=== PATIENT | male | born 1960 | race Caucasian/White ===

== ENCOUNTER 2020-08-25 07:47 | Outpatient (CLI) | payer BC, SELFPAY ==
[2020-08-25 08:38] LABS: Basophils Percent Auto 0.5 % (0.2-1.2); Eosinophils Absolute Auto 0.1 K/mm3 (0-0.3); Eosinophils Percent Auto 1.9 % (0-4.4); Hematocrit 43.6 % (42.0-52.0); Hemoglobin 15.2 g/dL (14.0-18.0); Immature Granulocyte Absolute 0.01 K/mm3 (0.00-0.031); Immature Granulocyte Percent A 0.2 % (0-0.5); Lymphocytes Absolute Auto 2.36 K/mm3 (0.9-3.2); Lymphocytes Percent Auto 40.7 % (18.3-44.2); Mean Corpuscular HGB Conc 34.9 g/dl (32-36); Mean Corpuscular Hemoglobin 30.6 pg (26-34); Mean Corpuscular Volume 87.9 fl (80-100); Mean Platelet Volume 8.7 fl (7.4-10.4); Monocytes Absolute Auto 0.5 K/mm3 (0.1-0.6); Monocytes Percent Auto 7.9 % (2.6-8.5); Neutrophils Absolute Auto 2.8 K/mm3 (1.3-6.7); Neutrophils Percent Auto 48.8 % (45.5-73.1); Platelet Count Result 192 k/mm3 (150-375); Red Blood Count 4.96 M/mm3 (4.6-6.20); Red Cell Distribution Width 12.8 % (11.5-14.5); White Blood Count 5.8 K/mm3 (4.5-10.0)
[2020-08-25 08:54] LABS: Alanine Aminotransferase 40 U/L (4-50); Albumin Level 4.4 g/dL (3.5-5.1); Alkaline Phosphatase 72 U/L (38-126); Anion Gap 7 mmol/L (8-16); Aspartate Amino Transferase 38 U/L (17-59); Bilirubin,Total 1.3 mg/dL (0.2-1.3); Blood Urea Nitrogen 16 mg/dL (9-20); Calcium 9.6 mg/dL (8.4-10.2); Carbon Dioxide 31 mmol/L (22-30); Chloride 101 mmol/L (98-107); Cholesterol 223 mg/dL (0-200); Estimated Glomerular Filt Rate > 60; Glucose 108 mg/dL (75-110); HDL Direct 40 mg/dL; Potassium 4.3 mmol/L (3.4-5.0); Sodium 139 mmol/L (137-145); Triglycerides 412 mg/dL (<150)
[2020-08-25 09:05] LABS: LDL Cholesterol Direct 104 mg/dL
[2020-08-25 09:22] LABS: Prostate Specific Antigen 0.9 ng/mL (< OR = 4.0)
== END 2020-08-25 07:48 | disposition home or self-care (01) ==
PROVIDERS: PCP Internal Medicine; Visit Provider Clinical Nurse Specialist
DX: E78.1 Pure hyperglyceridemia (principal); Z12.5 Encounter for screening for malignant neoplasm of prostate; R73.9 Hyperglycemia, unspecified
CPT/HCPCS: 36415; 80053; 80061; 84153; 85025; G0103

== ENCOUNTER 2021-08-25 07:40 | Outpatient (CLI) | payer BC, SELFPAY ==
[2021-08-25 07:57] LABS: Basophils Percent Auto 0.5 % (0.2-1.2); Eosinophils Absolute Auto 0.1 K/mm3 (0-0.3); Eosinophils Percent Auto 1.8 % (0-4.4); Hematocrit 43.2 % (42.0-52.0); Hemoglobin 15.1 g/dL (14.0-18.0); Immature Granulocyte Absolute 0.04 K/mm3 (0.00-0.031); Immature Granulocyte Percent A 0.7 % (0-0.5); Mean Corpuscular Hemoglobin 30.9 pg (26-34); Mean Corpuscular Volume 88.3 fl (80-100); Mean Platelet Volume 8.5 fl (7.4-10.4); Monocytes Absolute Auto 0.5 K/mm3 (0.1-0.6); Monocytes Percent Auto 8.6 % (2.6-8.5); Neutrophils Absolute Auto 2.7 K/mm3 (1.3-6.7); Neutrophils Percent Auto 46.4 % (45.5-73.1); Platelet Count Result 191 k/mm3 (150-375); Red Blood Count 4.89 M/mm3 (4.6-6.20); Red Cell Distribution Width 12.8 % (11.5-14.5); White Blood Count 5.7 K/mm3 (4.5-10.0)
[2021-08-25 08:29] LABS: Alanine Aminotransferase 32 U/L (4-50); Albumin Level 4.7 g/dL (3.5-5.1); Alkaline Phosphatase 71 U/L (38-126); Anion Gap 9 mmol/L (8-16); Aspartate Amino Transferase 31 U/L (17-59); Bilirubin,Total 0.9 mg/dL (0.2-1.3); Blood Urea Nitrogen 17 mg/dL (9-20); Calcium 9.1 mg/dL (8.4-10.2); Carbon Dioxide 26 mmol/L (22-30); Chloride 102 mmol/L (98-107); Cholesterol 229 mg/dL (0-200); Estimated Glomerular Filt Rate > 60; Glucose 110 mg/dL (65-110); HDL Direct 44 mg/dL; Potassium 3.9 mmol/L (3.4-5.0); Sodium 137 mmol/L (137-145); Triglycerides 293 mg/dL (<150)
[2021-08-25 08:40] LABS: LDL Cholesterol Direct 118 mg/dL
[2021-08-25 08:51] LABS: Prostate Specific Antigen 0.9 ng/mL (< OR = 4.0)
== END 2021-08-25 07:41 | disposition home or self-care (01) ==
PROVIDERS: PCP Internal Medicine; Visit Provider Nurse Practitioner
DX: E78.2 Mixed hyperlipidemia (principal); R73.9 Hyperglycemia, unspecified; Z12.5 Encounter for screening for malignant neoplasm of prostate
CPT/HCPCS: 36415; 80053; 80061; 84153; 85025; G0103

== ENCOUNTER 2021-09-06 08:32 | Outpatient (CLI) | payer BC, SELFPAY ==
--- NOTE | ~2021-09-06 | XR_ITS ---
EXAMINATION: XR hip RT min 2V DATE: 09/06/2021 08:49 INDICATION: Right hip pain. TECHNIQUE: 2 views of right hip were obtained. COMPARISON: None. FINDINGS: Bone alignment is normal. No fracture. There is moderate right hip osteoarthritis. IMPRESSION: 1. Moderate right hip osteoarthritis. Reviewed, dictated and finalized at location A. [employer]
== END 2021-09-06 08:33 | disposition home or self-care (01) ==
LOC: ANHIMG 08:35
PROVIDERS: PCP Internal Medicine; Visit Provider Nurse Practitioner
DX: M16.11 Unilateral primary osteoarthritis, right hip (principal)
CPT/HCPCS: 73502

== ENCOUNTER 2021-12-06 09:46 | Outpatient (CLI) | payer BC, SELFPAY ==
[2021-12-06 11:16] LABS: Hematocrit 44.5 % (42.0-52.0); Hemoglobin 15.4 g/dL (14.0-18.0)
[2021-12-06 11:25] LABS: Albumin Level 4.7 g/dL (3.5-5.1); Estimated Glomerular Filt Rate > 60; Glucose 99 mg/dL (65-110)
[2021-12-06 11:30] LABS: Hemoglobin A1C 5.4 % (<5.7)
== END 2021-12-06 09:47 | disposition home or self-care (01) ==
PROVIDERS: PCP Internal Medicine; Visit Provider Orthopaedic Surgery
DX: Z01.812 Encounter for preprocedural laboratory examination (principal); M16.11 Unilateral primary osteoarthritis, right hip; R73.9 Hyperglycemia, unspecified
CPT/HCPCS: 82040; 82565; 82947; 83036; 85014; 85018

== ENCOUNTER 2021-12-13 10:32 | Outpatient (CLI) | payer BC, SELFPAY ==
--- NOTE | 2021-12-13 | ECG_ITS ---
Measurements Intervals [place] Rate: 53 P: -9 MS: 140 QRS: -23 QRSD: 106 T: 21 QT: 432 QTc: 408 Interpretive Statements SINUS BRADYCARDIA INDETERMINATE AXIS BORDERLINE ECG Electronically Signed On 12-13-2021 11:27:23 CDT by Jose L Vera M.D.
== END 2021-12-13 10:33 | disposition home or self-care (01) ==
LOC: ANHCARD 10:38
PROVIDERS: PCP Internal Medicine; Visit Provider Orthopaedic Surgery
DX: M16.11 Unilateral primary osteoarthritis, right hip (principal); R00.1 Bradycardia, unspecified
CPT/HCPCS: 93005

== ENCOUNTER 2022-01-11 07:49 | Outpatient (CLI) | payer BC, SELFPAY ==
[2022-01-11 09:23] LABS: Basophils Percent Auto 0.7 % (0.2-1.2); Eosinophils Absolute Auto 0.1 K/mm3 (0-0.3); Eosinophils Percent Auto 1.4 % (0-4.4); Hematocrit 45.7 % (42.0-52.0); Hemoglobin 15.4 g/dL (14.0-18.0); Immature Granulocyte Absolute 0.02 K/mm3 (0.00-0.031); Immature Granulocyte Percent A 0.3 % (0-0.5); Lymphocytes Absolute Auto 2.02 K/mm3 (0.9-3.2); Mean Corpuscular HGB Conc 33.7 g/dl (32-36); Mean Corpuscular Hemoglobin 30.9 pg (26-34); Mean Corpuscular Volume 91.6 fl (80-100); Mean Platelet Volume 8.7 fl (7.4-10.4); Monocytes Absolute Auto 0.4 K/mm3 (0.1-0.6); Monocytes Percent Auto 7.3 % (2.6-8.5); Neutrophils Absolute Auto 3.2 K/mm3 (1.3-6.7); Neutrophils Percent Auto 55.3 % (45.5-73.1); Platelet Count Result 216 k/mm3 (150-375); Red Blood Count 4.99 M/mm3 (4.6-6.20); Red Cell Distribution Width 13.2 % (11.5-14.5); White Blood Count 5.8 K/mm3 (4.5-10.0)
[2022-01-11 09:30] LABS: Albumin Level 4.8 g/dL (3.5-5.1); Estimated Glomerular Filt Rate > 60; Glucose 116 mg/dL (65-110)
[2022-01-11 09:32] LABS: Urine Cotinine NEGATIVE
[2022-01-11 09:41] LABS: Appearance Urine Clear (Clear); Bilirubin Urine Negative (Negative); Color Urine Yellow (Yellow); Glucose Urine UA Negative (Negative); Ketones Urine Negative (Negative); Leukocyte Esterase Ur Negative LEU/UL (NEGATIVE); Nitrate Urine Negative (Negative); Protein Urine Negative (Negative); Specific Grav Ur 1.015 (1.001-1.035); Urobilinogen Urine 0.2 mg/dL (<2.0); pH Urine 6.5 (5.0-9.0)
[2022-01-11 09:53] LABS: Add Urine Microscopic? YES; Blood Urine Trace-Intact (Negative)
[2022-01-11 09:56] LABS: RBC Urine 0-2 /hpf (0-2)
== END 2022-01-11 07:50 | disposition home or self-care (01) ==
LOC: ANHSURGERY 07:53
PROVIDERS: PCP Internal Medicine; Visit Provider Orthopaedic Surgery
DX: M16.11 Unilateral primary osteoarthritis, right hip (principal); N50.811 Right testicular pain; Z01.818 Encounter for other preprocedural examination
CPT/HCPCS: 80307; 81001; 82040; 82565; 82947; 85025; 87081

== ENCOUNTER 2022-01-12 00:04 | Day surgery (SDC) | payer BC, SELFPAY ==
[2022-01-02 10:21] VITALS: BMI 33.8
--- NOTE | 2022-01-11 11:14 | P.PNAN_ITS ---
Anes - Initial Pre Proc Eval Procedure: Operation Date: 01/12/22 08:00 Proposed Procedures p Screening Colonoscopy - Eliseo Nicolas MD Date/Time: 01/11/22 11:14 Surgeon: Eliseo Nicolas MD Pre Op Diagnosis: family hx of colon ca Patient Data Age: 61 Gender: M Height: 1.78 m Weight: 107 kg Allergies Allergy/AdvReac Type Severity Reaction Status Date / Time No Known Allergies Allergy Verified 01/12/22 06:49 Home Medications Medication Instructions Recorded Confirmed Type aspirin 81 mg chewable tablet 81 mg PO QPM 08/25/19 01/12/22 History famotidine 20 mg tablet 20 mg PO QPM 08/25/19 01/12/22 History glucosamine-chondroitin 750 mg-600 2 tablet PO DAILY 08/25/19 01/12/22 History mg tablet lovastatin 40 mg tablet 40 mg PO QPM #90 tablet 09/01/21 01/12/22 Rx omega-3 fatty acids 1,000 mg 2,000 mg PO BID cap 09/01/21 01/12/22 History capsule cinnamon bark [Cinnamon] 1,000 mg PO BID 01/11/22 01/12/22 History ibuprofen 400 mg PO Q6H PRN 01/11/22 01/12/22 History multivitamin 1 tablet PO DAILY 01/11/22 01/12/22 History Patient hx anesthesia problems: none Family hx anesthesia problems: none Results Review: All pre-operative results and documents have been reviewed as part of the pre-operative evaluation. FORMERLY [facility], [facility] Past Medical History Medical History Allergies Chicken pox GERD (gastroesophageal reflux disease) Heartburn History of measles, mumps, or rubella History of stress test (~2014) Hyperglycemia Hyperglycemia Hypertriglyceridemia Obesity BLU (obstructive sleep apnea) Osteoarthritis Surgical History Surgical History H/O knee surgery (~05/03/09) Right Knee Torn Meniscus Family History Family History Father Patient's father is Other Arthritis Social History Social History Smoking packs per day: 0.5 Smoking cigarettes per day: 10.0 Years smoked: 25 Smoking pack-years: 12.50 Smoking status: Former smoker Tobacco type: cigarettes Smoking end date: 09/24/07 Additional smoking assessment comments: DENIES ANY FORM OF TOBACCO USE Alcohol intake: current Alcohol use details: 3 DRINKS PER MONTH Substance use: never Substance use type: does not use Living arrangements: with family Spiritual care concerns: No Anes - Eval Final PreProcedure Day of Procedure 01/11/22 11:14 Patient weight: obese Heart: regular rate and rhythm Lungs: clear to auscultation and normal air movement Airway: Mallampati scale class II Neurological: alert and oriented Last oral intake: >/= 8 hours ASA classification: III Emergent: no Anesthetic plan: proceed Anesthesia type and monitoring: general GIVS and standard monitoring Results Review: All pre-operative results and documents have been reviewed as part of the pre-operative evaluation. Informed Consent: The patient's anesthetic plan and its attendant risks and benefits were discussed with the patient/family/POA. Questions were solicited and answers provided to the satisfaction of the patient/family/POA.
--- NOTE | 2022-01-11 14:19 | PM.HPGS ---
History of Present Illness History of Present Illness Consent: Risks, benefits, and alternatives have been discussed and questions answered. Patient agrees to proceed with procedure. Chief complaint: family hx of colon ca Narrative: Akbar Bai is a 61 year old male was referred for colon cancer screening. He had a polyp removed about 5 years ago. Also he has a family history of colon cancer. Review of Systems Review of Systems: All systems reviewed & are unremarkable except as noted in HPI and below PMFSH Past Medical History Medical History Allergies Chicken pox GERD (gastroesophageal reflux disease) Heartburn History of measles, mumps, or rubella History of stress test (~2014) Hyperglycemia Hyperglycemia Hypertriglyceridemia Obesity BLU (obstructive sleep apnea) Osteoarthritis Surgical History Surgical History H/O knee surgery (~05/03/09) Right Knee Torn Meniscus Family History Family History Father Patient's father is Other Arthritis Social History Social History Smoking packs per day: 0.5 Smoking cigarettes per day: 10.0 Years smoked: 25 Smoking pack-years: 12.50 Smoking status: Former smoker Tobacco type: cigarettes Smoking end date: 09/24/07 Additional smoking assessment comments: DENIES ANY FORM OF TOBACCO USE Alcohol intake: current Alcohol use details: 3 DRINKS PER MONTH Substance use: never Substance use type: does not use Living arrangements: with family Spiritual care concerns: No Meds Home Medications and Allergies Home Medications Medication Instructions Recorded Confirmed Type aspirin 81 mg chewable tablet 81 mg PO QPM 08/25/19 01/12/22 History famotidine 20 mg tablet 20 mg PO QPM 08/25/19 01/12/22 History glucosamine-chondroitin 750 mg-600 2 tablet PO DAILY 08/25/19 01/12/22 History mg tablet lovastatin 40 mg tablet 40 mg PO QPM #90 tablet 09/01/21 01/12/22 Rx omega-3 fatty acids 1,000 mg 2,000 mg PO BID cap 09/01/21 01/12/22 History capsule cinnamon bark [Cinnamon] 1,000 mg PO BID 01/11/22 01/12/22 History ibuprofen 400 mg PO Q6H PRN 01/11/22 01/12/22 History multivitamin [Multi-Vitamin] 1 tablet PO DAILY 01/11/22 01/12/22 History Allergies Allergy/AdvReac Type Severity Reaction Status Date / Time No Known Allergies Allergy Verified 01/12/22 06:49 Exam Const: General: alert Orientation/consciousness: patient oriented x3 Resp: Auscultation: clear to auscultation bilaterally Cardio: Rhythm: regular rhythm GI: GI Palp: Yes Soft to palpation and No Tenderness to palpation present (GI) Neuro: General: patient oriented x3 Assessment and Plan Assessment and plan (1) Colon cancer screening: Code(s): Z12.11 - Encounter for screening for malignant neoplasm of colon Status: Acute Assessment and Plan: Colonoscopy with possible biopsy or polypectomy or cautery or injection of substances.
[2022-01-12 06:50] VITALS: BP 162/87; PULSE 77; RESP 16; TEMP 36.8; O2SAT 100; BMI 33.3
[2022-01-12] MEDS: LACTATED RINGERS 1,000 ML 150 ML IV CONT (07:04)
[2022-01-12 07:58] VITALS: BP 112/74; PULSE 77; RESP 23; O2SAT 94
[2022-01-12 08:08] VITALS: BP 115/78; PULSE 72; RESP 30; O2SAT 96
[2022-01-12 08:18] VITALS: BP 125/75; PULSE 67; RESP 20; O2SAT 96
== END 2022-01-12 08:31 | disposition home or self-care (01) ==
PROVIDERS: PCP Internal Medicine; Visit Provider Internal Medicine Gastroenterology
PROC: 0DJD8ZZ Inspection of Lower Intestinal Tract, Via Natural or Artificial Opening Endoscopic (ICD-10-PCS; CPT 45378; principal; 2022-01-12 08:00)
DX: Z12.11 Encounter for screening for malignant neoplasm of colon (principal); K57.30 Diverticulosis of large intestine without perforation or abscess without bleeding; Z86.010 Personal history of colon polyps; Z80.0 Family history of malignant neoplasm of digestive organs; K21.9 Gastro-esophageal reflux disease without esophagitis; G47.33 Obstructive sleep apnea (adult) (pediatric); E78.1 Pure hyperglyceridemia; Z87.891 Personal history of nicotine dependence; E66.9 Obesity, unspecified; Z68.33 Body mass index [BMI] 33.0-33.9, adult; Z79.82 Long term (current) use of aspirin
CPT/HCPCS: 45378; J2704; J7120

== ENCOUNTER 2022-02-07 00:09 | Day surgery (SDC) | payer BC, SELFPAY ==
[2022-01-11 07:59] VITALS: BMI 34.4
--- NOTE | 2022-01-11 08:14 | PC.NURSE ---
Addendum entered by Oksana Weaver RN 01/11/22 08:25: IBUPROFEN 7 DAYS PRE OP LAST DOSE 01/30/22 Original Note: Report to the Outpatient Waiting Room, entrance under the green pavilion located off [facility], at time _0900 on date __02/07/22 . OR Time: __1100 . - You and your visitor will be asked a series of questions to screen for COVID 19 for your protection. - A mask is required within the hospital. Preoperative COVID Testing Requirements: No COVID Test needed if: (proof is required; if not received patient will have Rapid Test prior to entry) - Patient has received COVID Vaccine at least 14 days prior to procedure date or - Patient has positive COVID test result within last 90 days of surgery date. COVID Test needed if above criteria is not met If not COVID vaccinated a COVID test must be conducted within 72 hours of surgery and patient is asked to isolate self from time of testing until procedure. You will go to the [facility] for your COVID testing. The [facility] site is located at the corner of [address] [facility]. You will only be called if COVID results are positive and your surgeon may reschedule your elective surgery date. Patients may have clear liquids (water, carbonated beverages, clear teas, apple juice) until 3 hours prior to surgery with a maximum of 20 ounces. - No food from midnight until time of surgery - Infants may have breast milk until 4 hours before surgery, infant formula 6 hours prior to surgery. - Children will be allowed to drink immediately following surgery. If applicable, please bring a bottle or sippy cup to assist with drinking. Juice, water, soda, and popsicles are readily available. For infants on formula, please bring formula the day of surgery. Pacifiers are allowed. Take the following medications with a SIP of water the morning of surgery: ___NONE Medications to discontinue per physician ____ASPIRIN 7 DAYS PRE OP__AND ALL VITAMINS AND SUPPLEMENTS 3 DAYS PRE OP Date to take last dose_ASPIRIN 01/30/22__ALL VITAMINS/SUPPLEMENTS 02/03/22 Please no make-up, nail romanian, hairspray, perfume, deodorant, or body powder the day of surgery. No jewelry (including any body piercings) or valuables the day of surgery, leave them at home. Please take a shower or bath the night before, or the morning of, surgery with an antibacterial soap. Wear comfortable, loose fitting clothing. Children are encouraged to wear pajamas. - Jewelry must be removed prior to entering the operating room. Rings and piercings that are not removed may be cut off. - The hospital will not accept responsibility for valuables. - Please leave all valuables, including medications, at home the day of surgery. If you are going home after surgery, a licensed pole truck driver must drive you home. - NO public transportation without another adult. - We recommend that an adult stay with you for 24 hours following discharge. - We also recommend that you do not drive, make important decision, drink alcoholic beverages, or take any drugs that were not prescribed by your health care provider for at least 24 hours after your discharge time. One visitor will be allowed to accompany the patient into the hospital. Patients visitor will be instructed to remain with patient at all times or leave the building. We will allow the visitor to come back to the postoperative area when patient is ready. Follow any additional instructions given to you from your surgeon. VERBAL AND WRITTEN instructions given to PATIENT AND SPOUSE and asked if any additional questions and then verbalized understanding. Patient advised to call surgeon office or pre surgery nurse liaison [phone] if any additional questions.
[2022-01-11 08:45] VITALS: BP 148/78; PULSE 55; RESP 18; TEMP 36.9; O2SAT 100
--- NOTE | 2022-02-06 11:59 | WPDANESEPPF ---
Anes - Initial Pre Proc Eval Procedure: Operation Date: 02/07/22 10:30 Proposed Procedures p Right Total Hip Arthroplasty - Farhan Chavira MD Date/Time: 02/06/22 11:59 Surgeon: Farhan Chavira MD Pre Op Diagnosis: primary OA right hip Patient Data Age: 61 Gender: M Height: 1.78 m Weight: 108.7 kg Last Vital Signs Temp 36.9 C 01/11/22 08:45 Pulse 55 L 01/11/22 08:45 Resp 18 01/11/22 08:45 BP 148/78 H 01/11/22 08:45 Pulse Ox 100 01/11/22 08:45 Allergies Allergy/AdvReac Type Severity Reaction Status Date / Time No Known Allergies Allergy Verified 02/07/22 08:44 Home Medications Medication Instructions Recorded Confirmed Type aspirin 81 mg chewable tablet 81 mg PO QPM 08/25/19 02/07/22 History famotidine 20 mg tablet 20 mg PO QPM 08/25/19 02/07/22 History glucosamine-chondroitin 750 mg-600 2 tablet PO DAILY 08/25/19 02/07/22 History mg tablet lovastatin 40 mg tablet 40 mg PO QPM #90 tablet 09/01/21 02/07/22 Rx omega-3 fatty acids 1,000 mg 2,000 mg PO BID cap 09/01/21 02/07/22 History capsule cinnamon bark [Cinnamon] 1,000 mg PO BID 01/11/22 02/07/22 History ibuprofen 400 mg PO Q6H PRN 01/11/22 02/07/22 History multivitamin 1 tablet PO DAILY 01/11/22 02/07/22 History aspirin 81 mg PO BID 14 Days #28 tablet 02/08/22 Rx meloxicam 15 mg PO DAILY #30 tablet 02/08/22 Rx oxycodone-acetaminophen 1 - 2 tablet PO Q4-6H PRN #30 02/08/22 Rx tablet MDD 6 Patient hx anesthesia problems: none Family hx anesthesia problems: none Results Review: All pre-operative results and documents have been reviewed as part of the pre-operative evaluation. [facility] Past Medical History Medical History Allergies Chicken pox GERD (gastroesophageal reflux disease) Heartburn History of measles, mumps, or rubella History of stress test (~2014) Hyperglycemia Hyperglycemia Hypertriglyceridemia Obesity BLU (obstructive sleep apnea) Osteoarthritis Surgical History Surgical History H/O knee surgery (~05/03/09) Right Knee Torn Meniscus Family History Family History Father Patient's father is Other Arthritis Social History Social History Smoking packs per day: 0.5 Smoking cigarettes per day: 10.0 Years smoked: 25 Smoking pack-years: 12.50 Smoking status: Former smoker Additional smoking assessment comments: DENIES ANY FORM OF TOBACCO USE Alcohol intake: current Alcohol use details: Pt drinks occasionally. Substance use: never Substance use type: does not use Gender identity (if verbalized by the patient): Male Sexual Orientation (if Verbalized by the Patient): Straight or Heterosexual Spiritual care concerns: No Anes - Eval Final PreProcedure Day of Procedure 02/06/22 11:59 Patient weight: obese Heart: regular rate and rhythm Lungs: clear to auscultation and normal air movement Airway: Mallampati scale class II Neurological: alert and oriented Last oral intake: >/= 8 hours ASA classification: III Emergent: no Anesthetic plan: proceed Anesthesia type and monitoring: general ETT Results Review: All pre-operative results and documents have been reviewed as part of the pre-operative evaluation. Informed Consent: The patient's anesthetic plan and its attendant risks and benefits were discussed with the patient/family/POA. Questions were solicited and answers provided to the satisfaction of the patient/family/POA.
[2022-02-07] VITALS (15 sets, daily range): BP systolic 102–152; BP diastolic 42–72; PULSE 55–80; RESP 12–20; TEMP 35.8–36.8; O2SAT 94–100; BMI 33.1
--- NOTE | ~2022-02-07 | XR_ITS ---
EXAMINATION: XR hip RT min 2V DATE: 02/07/2022 12:49 INDICATION: Postop images following right total hip arthroplasty. TECHNIQUE: Anteroposterior and cross-table lateral views of the right hip were obtained. COMPARISON: 01/25/2022 FINDINGS: Noncemented right total hip arthroplasty in near-anatomic alignment. No fracture. Expected small amou nt of postoperative soft tissue gas overlying the greater trochanter. IMPRESSION: 1. Expected appearance post right total hip arthroplasty. Reviewed, dictated and finalized at location A.
--- NOTE | 2022-02-07 07:16 | WPDHPUPDATE1 ---
History and Physical Update Update Date/Time: 02/07/22 07:16 History and Physical has been reviewed, including an updated exam of the patient. There are NO changes in the patient's condition. Risks, benefits, and alternatives have been discussed and questions answered. Patient agrees to proceed with procedure. Proceed with right total hip arthroplasty
[2022-02-07] MEDS: ACETAMINOPHEN 500 MG TABLET 1000 MG PO (08:50)
[2022-02-07] MEDS: LACTATED RINGERS 1,000 ML 30 ML IV CONT ×2 (09:10→12:34)
[2022-02-07] MEDS: TRANEXAMIC ACID 1,000MG/ISO100 1,000 MG/100 ML BAG 200 MG IVPB (10:00)
--- NOTE | 2022-02-07 10:20 | WPDANESEPPF ---
Anes - Initial Pre Proc Eval Procedure: Operation Date: 02/07/22 10:30 Proposed Procedures p Right Total Hip Arthroplasty - Farhan Chavira MD Date/Time: 02/07/22 10:20 Surgeon: Farhan Chavira MD Pre Op Diagnosis: primary OA right hip Patient Data Age: 61 Gender: M Height: 1.78 m Weight: 104.8 kg Last Vital Signs Temp 96.4 F L 02/07/22 09:24 Pulse 57 L 02/07/22 09:24 Resp 16 02/07/22 09:24 BP 152/66 H 02/07/22 09:24 Pulse Ox 100 02/07/22 09:24 Allergies Allergy/AdvReac Type Severity Reaction Status Date / Time No Known Allergies Allergy Verified 02/07/22 08:44 Home Medications Medication Instructions Recorded Confirmed Type aspirin 81 mg chewable tablet 81 mg PO QPM 08/25/19 02/07/22 History famotidine 20 mg tablet 20 mg PO QPM 08/25/19 02/07/22 History glucosamine-chondroitin 750 mg-600 2 tablet PO DAILY 08/25/19 02/07/22 History mg tablet lovastatin 40 mg tablet 40 mg PO QPM #90 tablet 09/01/21 02/07/22 Rx omega-3 fatty acids 1,000 mg 2,000 mg PO BID cap 09/01/21 02/07/22 History capsule cinnamon bark [Cinnamon] 1,000 mg PO BID 01/11/22 02/07/22 History ibuprofen 400 mg PO Q6H PRN 01/11/22 02/07/22 History multivitamin 1 tablet PO DAILY 01/11/22 02/07/22 History Laboratory Tests 02/07/22 08:47 Blood Type O Positive Antibody Screen Negative Patient hx anesthesia problems: none Family hx anesthesia problems: none Results Review: All pre-operative results and documents have been reviewed as part of the pre-operative evaluation. REPLACED BY [facility] Past Medical History Medical History Allergies Chicken pox GERD (gastroesophageal reflux disease) Heartburn History of measles, mumps, or rubella History of stress test (~2014) Hyperglycemia Hyperglycemia Hypertriglyceridemia Obesity BLU (obstructive sleep apnea) Osteoarthritis Surgical History Surgical History H/O knee surgery (~05/03/09) Right Knee Torn Meniscus Family History Family History Father Patient's father is Other Arthritis Social History Social History Smoking packs per day: 0.5 Smoking cigarettes per day: 10.0 Years smoked: 25 Smoking pack-years: 12.50 Smoking status: Former smoker Tobacco type: cigarettes Smoking end date: 09/24/07 Additional smoking assessment comments: DENIES ANY FORM OF TOBACCO USE Alcohol intake: current Alcohol use details: Pt drinks occasionally. Substance use: never Substance use type: does not use Living arrangements: with family Spiritual care concerns: No Anes - Eval Final PreProcedure Day of Procedure 02/07/22 10:20 Patient weight: obese Heart: regular rate and rhythm Lungs: clear to auscultation Airway: Mallampati scale class III Neurological: alert and oriented Last oral intake: >/= 8 hours ASA classification: III Emergent: no Anesthetic plan: proceed Anesthesia type and monitoring: general ETT and standard monitoring Results Review: All pre-operative results and documents have been reviewed as part of the pre-operative evaluation. Informed Consent: The patient's anesthetic plan and its attendant risks and benefits were discussed with the patient/family/POA. Questions were solicited and answers provided to the satisfaction of the patient/family/POA.
[2022-02-07] MEDS: ceFAZolin 2 GM/D5W 50 ML 2 GM/50 ML BAG IVPB ×2 (10:33→18:14)
[2022-02-07] MEDS: fentaNYL CITRATE INJ (*CRX) 100 MCG/2 ML VIAL 25 MCG IV PUSH ×4 (12:59→13:33)
--- NOTE | 2022-02-07 14:25 | ADMGEN ---
This patient, Akbar Bai, was admitted to 2 Medical Room 253-01. Patient/family oriented to hospital policies and general routines including ID bracelet, bed and alarms, visiting hours, pain management, procedures, bathroom and other care routines, personal items, smoking policy, room service/diet, and visiting hours. Information on how to activate the Rapid Response Team has been discussed. Patient/Family are encouraged to report perceived risks to care and to ask questions if they do not understand what they are told or what they should do.
[2022-02-07] MEDS: SODIUM CHLORIDE 0.9% IV 1,000 ML 125 ML IV CONT (14:47)
--- NOTE | 2022-02-07 14:55 | W.PM.PROC2 ---
Procedure Note - Detailed Date of Procedure 02/07/22 Pre-op Diagnosis primary OA right hip Post-op Diagnosis Same Procedure Performed Right Total Hip Arthroplasty Surgeon Farhan Chavira MD Claim Professional Mirna Silva PA-C Anesthesia General Findings Good bone quality. No abnormal anatomy. Significant superior labral degeneration and some erosion in the superior anterior acetabulum. Description of Procedure The patient was given preoperative antibiotics. A general anesthetic was administered. The patient was carefully placed in the lateral decubitus position on the PEG board. The shoulders and hips were carefully positioned for component and leg length positioning reference. The hip was prepped and draped in the usual sterile fashion. A longitudinal incision was created over the posterior aspect of the greater trochanter. Careful dissection was brought down through the deep fascia with electrocautery. A minimally invasive optimized posterior approach to the hip was performed. The short external rotators and capsule were taken down in an L-shaped capsulotomy. The tissue was tagged for later repair using number 2 high strength suture. The femoral neck was measured and taken in situ. The femoral head was removed. The acetabulum was carefully exposed. The inferior capsule was released. The labrum was resected. The acetabulum was sequentially reamed to one over the intended cup size. The cup was impacted into position with excellent press-fit. Typical anatomic landmarks, including the bony contact points as well as the inferior transverse acetabular ligament were used to confirm cup positioning with preoperative templating. Attention was turned to the femur, which was carefully exposed. The hip was reamed and then broached sequentially. Excellent press-fit was obtained with the broach. The hip was trialed. Measurements were utilized, including the lesser trochanter as well as the center of the femoral head and the tip of the trochanter, and excellent assessment of the offset and leg lengths were confirmed. The real component was impacted into position. Trialing confirmed appropriate leg length and offset with soft tissue balancing as well apparent feel of the leg, both at the knee and the heel. Soft tissues were assessed using the the iliotibial band. Reduction of the posterior capsule and external rotators were also used as a secondary assessment. The hip was copiously irrigated with pulsatile lavage antibiotic solution periodically throughout the procedure. The real components were then assembled and reduced. The hip was stable throughout typical maneuvers, including extension, external rotation to 70 degrees, the position of sleep as well as flexion to 90 degrees with internal rotation past 45 degrees. The shake test confirmed stability without impingement. Osteophytes were removed as necessary. The short external rotators and capsule were repaired back to the posterior trochanter through drill holes. The deep fascia was repaired with running number 2 Quill suture, followed by 0 Stratafix suture and 2-0 Stratafix suture in the dermis. Steri-Strips were placed on the skin, followed by a sterile silver occlusive dressing. There were no complications. Meticulous hemostasis was maintained with the AquaMantys device. The patient was brought to the recovery room in stable condition. There were no complications. Implants The Accolade II hip stem, 132 degree size 7 , was utilized with excellent press-fit. The 56 mm Trident II acetabular component was impacted with excellent press-fit stability. 10 degree elevated liner. The +2.5 , 36 mm Biolox ceramic femoral head was utilized. Estimated Blood Loss -300.0 Drains No Packing No Pathology None sent Complications No immediate complications Condition Stable Disposition PACU [facility] Billing Surgery - Charge Forward: Surgery Billing
[2022-02-07] MEDS: SENNA/DOCUSATE SODIUM TABLET 2 TAB PO (17:05)
[2022-02-07] MEDS: MELOXICAM 7.5 MG TABLET PO (17:06)
[2022-02-07] MEDS: FAMOTIDINE 20 MG TABLET PO (17:06)
[2022-02-07] MEDS: LOVASTATIN 20 MG TABLET 40 MG PO (17:07)
[2022-02-07] MEDS: oxyCODONE HCL (*CRX) 5 MG TAB IR PO (23:40)
[2022-02-08] MEDS: ceFAZolin 2 GM/D5W 50 ML 2 GM/50 ML BAG IVPB ×2 (01:48→11:12)
[2022-02-08 03:42] VITALS: BP 110/52; PULSE 52; RESP 20; TEMP 36.1; O2SAT 98
[2022-02-08 03:47] VITALS: BP 110/52; PULSE 52; RESP 20; TEMP 36.1; O2SAT 98
--- NOTE | 2022-02-08 07:47 | WPDANESPN ---
Anes - Prog Note Post-Op Date/Time: 02/08/22 07:47 Cardiovascular status: normal Respiratory status: normal Airway patency: baseline Mental status: baseline Post-Op hydration status: normal Vital Signs: Last Vital Signs Temp 36.1 C L 02/08/22 03:47 Pulse 52 L 02/08/22 03:47 Resp 20 02/08/22 03:47 BP 110/52 L 02/08/22 03:47 Pulse Ox 98 02/08/22 03:47 Pain Score (VAS): 0 I/O: Intake & Output 02/07/22 02/07/22 02/08/22 15:59 23:59 07:59 Intake Total 1850 1930 440 Output Total 850 800 Balance 1850 1080 360 02/07/22 08:47 Blood Type O Positive Antibody Screen Negative Post-procedural complaints: none Patient Feedback: Patient satisfied with anesthetic care.
[2022-02-08] MEDS: MELOXICAM 7.5 MG TABLET PO (08:10)
[2022-02-08] MEDS: SENNA/DOCUSATE SODIUM TABLET 2 TAB PO (08:10)
[2022-02-08] MEDS: polyethylene glycoL 3350 17 GM POWD.PACK PO (08:10)
[2022-02-08 10:15] VITALS: BP 135/58; PULSE 60; RESP 16; TEMP 37.1; O2SAT 100
[2022-02-08] MEDS: ACETAMINOPHEN 500 MG TABLET 1000 MG PO (12:00)
[2022-02-08 14:30] VITALS: BP 131/52; PULSE 65; RESP 14; TEMP 36.9; O2SAT 100
--- NOTE | 2022-02-08 14:56 | PM.DS ---
DS: Admitting Diagnosis Discharge Date 02/08/22 Admitting Diagnosis OA Right hip DS: Discharge Diagnosis Discharge Diagnosis (1) Status post total hip replacement, right: Code(s): Z96.641 - Presence of right artificial hip joint Status: Acute Assessment and Plan: Postop day 1: Right total Hip arthroplasty. Patient tolerated procedure well. No complications. Pain manageable with pain medication. No numbness or tingling. We had a lengthy discussion regarding postoperative wound care, limitations, expectations, and exercises. Patient shows good understanding. He has had initial physical therapy and is tolerating it well. DVT prophylaxis: 81 mg baby aspirin b.i.d. for 14 days. Pain medication: Percocet. Meloxicam. Patient has followup appointment with Dr. Chavira in 3 weeks. DS: Summary Hospital Course Reason for hospitalization: Total hip arthroplasty Hospital Course: Patient tolerated procedure well. Has had initial PT/OT and made good progress. Was unable to urinate after surgery. Victor Catheter placed overnight. Able to urinate on his own this afternoon. Status at Discharge Functional status at discharge: uses cane/walker Overall status at discharge: patient is progressing back to baseline Time Spent with Patient Time attestation: Total time spent providing and/or coordinating discharge services: Exam Narrative: Overweight 61 y/o male. Resting comfortably in bed. Wearing compression socks bilaterally. Dressing dry and intact with no drainage. Moderate swelling. No ecchymosis. No erythema. No hematoma. Range of motion limited due to pain. Calf nontender. Thigh nontender. Neurologic status intact. No varicosities. Distal pulses palpable. Discharge Plan Discharge Patient Disposition: Home, Self-Care Discharge Instructions: See green instruction sheet Stand Alone Forms: General Discharge Instructions Follow-up/Referrals: Mirna Silva PA [Physician Latin Dance Instructor] - Discharge Medications: New meloxicam 15 mg tablet 15 mg PO DAILY Qty: 30 RF: 0 aspirin 81 mg tablet,delayed release (DR/EC) 81 mg PO BID 14 Days Qty: 28 RF: 0 oxycodone-acetaminophen 5-325 mg tablet 1 - 2 tablet PO Q4-6H MDD 6 PRN (Reason: pain) Qty: 30 RF: 0 Continued glucosamine-chondroitin 750-600 mg tablet 2 tablet PO DAILY RF: 0 famotidine [Pepcid] 20 mg tablet 20 mg PO QPM RF: 0 omega-3 fatty acids [Fish Oil Concentrate] 1,000 mg capsule 2,000 mg PO BID RF: 0 lovastatin 40 mg tablet 40 mg PO QPM Qty: 90 RF: 3 multivitamin Tablet 1 tablet PO DAILY RF: 0 cinnamon bark [Cinnamon] 500 mg Capsule 1,000 mg PO BID RF: 0 Held aspirin 81 mg tablet,chewable 81 mg PO QPM RF: 0 Hold Instructions: Resume on 02/22/22. Take twice a day for 2 weeks then resume one a day dose. ibuprofen 400 mg Tablet 400 mg PO Q6H PRN (Reason: Pain) RF: 0 Hold Instructions: Resume on 03/15/22. Hold while taking Meloxicam
== END 2022-02-08 15:20 | disposition home or self-care (01) ==
LOC: ANHSURGERY 08:25 → ANH2MED 14:09
PROVIDERS: PCP Internal Medicine; Visit Provider Orthopaedic Surgery
PROC: (CPT 27130; principal; 2022-02-07 10:30)
DX: M16.11 Unilateral primary osteoarthritis, right hip (principal); G47.33 Obstructive sleep apnea (adult) (pediatric); E78.1 Pure hyperglyceridemia; K21.9 Gastro-esophageal reflux disease without esophagitis; Z79.82 Long term (current) use of aspirin; Z87.891 Personal history of nicotine dependence; E66.9 Obesity, unspecified; Z68.33 Body mass index [BMI] 33.0-33.9, adult
CPT/HCPCS: 27130; 36415; 73502; 86850; 86900; 86901; 97110; 97161; 97165; 97530; A9270; C1776; J0131; J0171; J0330; J0690; J1100; J1170; J1885; J2250; J2270; J2405; J2704; J2710; J2795; J3010; J7030; J7120

== ENCOUNTER 2022-08-21 07:40 | Outpatient (CLI) | payer BC, SELFPAY ==
[2022-08-21 18:31] LABS: Cholesterol 231 mg/dL (0-200); HDL Direct 36 mg/dL; Triglycerides 355 mg/dL (<150)
[2022-08-21 18:55] LABS: LDL Cholesterol Direct 115 mg/dL
[2022-08-21 19:29] LABS: Prostate Specific Antigen 1.2 ng/mL (< OR = 4.0)
== END 2022-08-21 07:41 | disposition home or self-care (01) ==
LOC: ANHLAB 07:42
PROVIDERS: PCP Internal Medicine; Visit Provider Nurse Practitioner
DX: E78.2 Mixed hyperlipidemia (principal); Z12.5 Encounter for screening for malignant neoplasm of prostate
CPT/HCPCS: 36415; 80061; 84153; G0103

== ENCOUNTER 2022-09-08 07:16 | Outpatient (CLI) | payer BC, SELFPAY ==
--- NOTE | ~2022-09-08 | CT_ITS ---
EXAMINATION:CT lung screening DATE: 09/08/2022 07:32 INDICATION: Tobacco use. Smoker who quit 14 years ago with 32 pack year history. TECHNIQUE: Computed tomography (CT) of the chest was performed without intravenous contrast. Automate d exposure control and iterative reconstruction technique were employed. The dose-length product (DLP ) was 226.37 mGy-cm. COMPARISON: None. FINDINGS: There is a 5 mm nodule at minor fissure. There is a 3 mm nodule in right upper lobe. No ple ural effusion. The heart size is normal. There are coronary artery calcifications. No pericardial eff usion. There is mild bilateral gynecomastia. There is a moderate-sized sliding hernia. There is mild chronic anterior wedging of multiple vertebral bodies. There is mild thoracic spondylosis. IMPRESSION: 1. Lung-RADS category 2: Benign appearance or behavior. Reviewed, dictated and finalized at location A. KER OUT
== END 2022-09-08 07:17 | disposition home or self-care (01) ==
PROVIDERS: PCP Internal Medicine; Visit Provider Nurse Practitioner
DX: Z12.2 Encounter for screening for malignant neoplasm of respiratory organs (principal); Z87.891 Personal history of nicotine dependence
CPT/HCPCS: 71271

== ENCOUNTER 2022-09-13 07:56 | Outpatient (CLI) | payer BC, SELFPAY | END 2022-09-13 07:57 | disposition home or self-care (01) | PROVIDERS: PCP Internal Medicine; Visit Provider Surgery | DX: K43.9 Ventral hernia without obstruction or gangrene (principal); Z01.818 Encounter for other preprocedural examination | CPT/HCPCS: 36415; 86850; 86900; 86901 ==

== ENCOUNTER 2022-09-20 00:36 | Day surgery (SDC) | payer BC, SELFPAY ==
[2022-09-05 13:43] VITALS: BMI 35.1
--- NOTE | 2022-09-05 13:47 | PC.NURSE ---
Report to the Outpatient Waiting Room, entrance under the green pavilion located off [facility], at time 08:00AM on date 09-20-22. Planned Procedure Time: 10:00AM. Time changes happen often and if your time is changed the preop area will call you the afternoon before. - You and your visitor will be asked to self-screen and do not enter if you have any COVID symptoms. - Only one visitor is requested with a max of two and NO children visitors are allowed at this time. - The patient visitor may be requested to leave or wait in car when not with patient due to distancing restrictions. - A mask is optional within the hospital. Patients may have clear liquids (water, carbonated beverages, clear teas, apple juice) until 3 hours prior to surgery (07:00AM) with a maximum of 20 ounces. - No food from midnight until time of surgery Take the following medications with a SIP of water the morning of surgery: N/A (PER [employer] ORDER SET) Medications to discontinue per physician SUPPLEMENTS Date to take last dose 09-16-22 Please no make-up, nail nepali, hairspray, perfume, deodorant, or body powder the day of surgery. No jewelry (including any body piercings) or valuables the day of surgery, leave them at home. Please take a shower or bath the night before, or the morning of, surgery with an antibacterial soap. Wear comfortable, loose fitting clothing. - Jewelry must be removed prior to entering the operating room. Rings and piercings that are not removed may be cut off. - The hospital will not accept responsibility for valuables. - Please leave all valuables, including medications, at home the day of surgery. If you are going home after surgery, a licensed sprinkler truck driver must drive you home. - NO public transportation without another adult if you receive anesthesia. - We recommend that an adult stay with you for 24 hours following discharge. - We also recommend that you do not drive, make important decision, drink alcoholic beverages, or take any drugs that were not prescribed by your health care provider for at least 24 hours after your discharge time. Follow any additional instructions given to you from your surgeon. If you or anyone in your household have experienced Covid symptoms in the past week, please notify your surgeon or the nurse liaison at the phone number below for possible testing. Telephone instructions given to PATIENT and asked if any additional questions and then verbalized understanding. Patient advised to call surgeon office or pre surgery nurse liaison [phone] if any additional questions.
[2022-09-20] VITALS (9 sets, daily range): BP systolic 103–138; BP diastolic 52–66; PULSE 55–68; RESP 13–18; TEMP 36.6–37.1; O2SAT 96–100; BMI 34.2
[2022-09-20] MEDS: ACETAMINOPHEN 500 MG TABLET 1000 MG PO (08:46)
[2022-09-20] MEDS: KETOROLAC 15 MG/ML VIAL (*BKC) IV PUSH (08:47)
--- NOTE | 2022-09-20 08:57 | PM.IMHP ---
H&P: HPI History of Present Illness Date/Time: 09/20/22 08:57 Chief Complaint: Ventral hernia Narrative: This is a 62-year-old man who presents for ventral hernia repair. He denies any changes since last seen in the office. Review of Systems Review of Systems: All systems reviewed & are unremarkable except as noted in HPI and below Constitutional: Constitutional: Denies chills, Denies fever(s), Denies headache(s) and Denies weight loss Eyes: Eyes: Denies change in vision ENT: Denies dizziness, Denies headache(s), Denies neck mass and Denies throat swelling Cardiovascular: Cardiovascular: Denies chest pain, Denies lightheadedness and Denies dyspnea Respiratory: Respiratory: Denies cough, Denies dyspnea and Denies wheezing Gastrointestinal: Gastrointestinal: Denies abdominal pain, Denies change in bowel habits, Denies nausea and Denies vomiting Genitourinary: Genitourinary: Denies hematuria and Denies dysuria Musculoskeletal: Musculoskeletal: Reports as per HPI Integumentary/Breasts: Skin/Breast: Reports as per HPI Neurologic: Denies dizziness and Denies headache(s) Allergic/Immunologic: Allergic/Immunologic: Denies throat swelling and Denies wheezing PMF Past Medical History Medical History (Updated 09/01/22 @ 08:58 by Polina Beltran NP) Allergies Chicken pox GERD (gastroesophageal reflux disease) Heartburn History of measles, mumps, or rubella History of stress test (~2014) Hyperglycemia Hyperglycemia Hypertriglyceridemia Obesity BLU (obstructive sleep apnea) Osteoarthritis Surgical History Surgical History (Updated 09/01/22 @ 08:19 by Jessi Lopez CMA) H/O knee surgery (~05/03/09) Right Knee Torn Meniscus History of hip replacement Family History Family History Father Patient's father is Other Arthritis Social History Social History (Updated 09/01/22 @ 08:29 by Jessi Lopez CMA) Smoking packs per day: 1 Smoking cigarettes per day: 20.0 Years smoked: 27 Smoking pack-years: 27.00 Smoking status: Former smoker Tobacco type: cigarettes Second hand tobacco smoke exposure: Yes Smoking end date: 09/24/07 Additional smoking assessment comments: DENIES ANY FORM OF TOBACCO USE Alcohol intake: current Drinks per week: 1 Alcohol use details: 2-3 TIMES PER MONTH Substance use: never Substance use type: does not use Lack of Transportation: No Lack of Food: Never True Current Housing: I Have Housing Concerned About Future Housing: No Difficulty Paying Gas/Electric Bills: No Difficulty Paying for Meds: No Currently Unemployed: No Education: Bachelor's Degree Difficulty w/ Childcare or Family Care: No Living arrangements: with family Gender identity (if verbalized by the patient): Male Sexual Orientation (if Verbalized by the Patient): Straight or Heterosexual Spiritual care concerns: No Meds Home Medications and Allergies Home Medications Medication Instructions Recorded Confirmed Type famotidine 20 mg tablet (Pepcid) 20 mg PO QPM 08/25/19 09/05/22 History glucosamine-chondroitin 750 mg-600 2 tablet PO DAILY 08/25/19 09/20/22 History mg tablet omega-3 fatty acids 1,000 mg 2,000 mg PO BID 09/01/21 09/20/22 History capsule (Fish Oil Concentrate) cinnamon bark 500 mg capsule 1,000 mg PO BID 01/11/22 09/20/22 History (Cinnamon) multivitamin 1 tablet PO DAILY 01/11/22 09/20/22 History aspirin 81 mg tablet,delayed 81 mg PO BID 14 days #28 tabs 02/08/22 09/05/22 Rx release lovastatin 40 mg tablet 40 mg PO QPM #90 tabs 09/01/22 09/05/22 Rx Allergies Allergy/AdvReac Type Severity Reaction Status Date / Time No Known Allergies Allergy Verified 09/20/22 08:11 Vital Signs Vital Signs - 24 hr 09/20/22 08:00 Temperature 36.6 C Pulse Rate 55 L Respiratory Rate 16 Blood Pressure 138/61 Pulse Oximetry 100 Oxygen Delivery
--- NOTE | 2022-09-20 08:59 | WPDHPUPDATE1 ---
History and Physical Update Update Date/Time: 09/20/22 08:59 History and Physical has been reviewed, including an updated exam of the patient. There are NO changes in the patient's condition. Risks, benefits, and alternatives have been discussed and questions answered. Patient agrees to proceed with procedure.
--- NOTE | 2022-09-20 09:14 | WPDANESEPPF ---
Anes - Initial Pre Proc Eval Procedure: Operation Date: 09/20/22 10:00 Proposed Procedures p Laparoscopic Ventral Hernia Repair with Mesh, Davinci Assisted - Farhan Farrell DO Date/Time: 09/20/22 09:14 Surgeon: Farhan Farrell DO Pre Op Diagnosis: ventral hernia Patient Data Age: 62 Gender: M Height: 1.78 m Weight: 108.3 kg Last Vital Signs Temp 36.6 C 09/20/22 08:00 Pulse 55 L 09/20/22 08:00 Resp 16 09/20/22 08:00 BP 138/61 09/20/22 08:00 Pulse Ox 100 09/20/22 08:00 O2 Del Method Room Air 09/20/22 08:00 Allergies Allergy/AdvReac Type Severity Reaction Status Date / Time No Known Allergies Allergy Verified 09/20/22 08:11 Home Medications Medication Instructions Recorded Confirmed Type famotidine 20 mg tablet (Pepcid) 20 mg PO QPM 08/25/19 09/05/22 History glucosamine-chondroitin 750 mg-600 2 tablet PO DAILY 08/25/19 09/20/22 History mg tablet omega-3 fatty acids 1,000 mg 2,000 mg PO BID 09/01/21 09/20/22 History capsule (Fish Oil Concentrate) cinnamon bark 500 mg capsule 1,000 mg PO BID 01/11/22 09/20/22 History (Cinnamon) multivitamin 1 tablet PO DAILY 01/11/22 09/20/22 History aspirin 81 mg tablet,delayed 81 mg PO BID 14 days #28 tabs 02/08/22 09/05/22 Rx release lovastatin 40 mg tablet 40 mg PO QPM #90 tabs 09/01/22 09/05/22 Rx Patient hx anesthesia problems: none Family hx anesthesia problems: none Results Review: All pre-operative results and documents have been reviewed as part of the pre-operative evaluation. [facility] Past Medical History Medical History Allergies Chicken pox GERD (gastroesophageal reflux disease) Heartburn History of measles, mumps, or rubella History of stress test (~2014) Hyperglycemia Hyperglycemia Hypertriglyceridemia Obesity BLU (obstructive sleep apnea) Osteoarthritis Surgical History Surgical History H/O knee surgery (~05/03/09) Right Knee Torn Meniscus History of hip replacement Family History Family History Father Patient's father is Other Arthritis Social History Social History Smoking packs per day: 1 Smoking cigarettes per day: 20.0 Years smoked: 27 Smoking pack-years: 27.00 Smoking status: Former smoker Tobacco type: cigarettes Second hand tobacco smoke exposure: Yes Smoking end date: 09/24/07 Additional smoking assessment comments: DENIES ANY FORM OF TOBACCO USE Alcohol intake: current Drinks per week: 1 Alcohol use details: 2-3 TIMES PER MONTH Substance use: never Substance use type: does not use Lack of Transportation: No Lack of Food: Never True Current Housing: I Have Housing Concerned About Future Housing: No Difficulty Paying Gas/Electric Bills: No Difficulty Paying for Meds: No Currently Unemployed: No Education: Bachelor's Degree Difficulty w/ Childcare or Family Care: No Living arrangements: with family Gender identity (if verbalized by the patient): Male Sexual Orientation (if Verbalized by the Patient): Straight or Heterosexual Spiritual care concerns: No Anes - Eval Final PreProcedure Day of Procedure 09/20/22 09:14 Patient weight: obese Heart: regular rate and rhythm Lungs: clear to auscultation Airway: Mallampati scale class II Neurological: alert and oriented Last oral intake: >/= 8 hours ASA classification: III Emergent: no Anesthetic plan: proceed Anesthesia type and monitoring: general ETT and standard monitoring Results Review: All pre-operative results and documents have been reviewed as part of the pre-operative evaluation. Informed Consent: The patient's anesthetic plan and its attendant risks and benefits were discussed with the patient/family/POA
[2022-09-20] MEDS: SCOPOLAMINE 1.5 MG PATCH TRANSDERM (09:17)
[2022-09-20] MEDS: LACTATED RINGERS 1,000 ML 30 ML IV CONT ×2 (09:17→11:26)
[2022-09-20] MEDS: ceFAZolin 2 GM/D5W 50 ML 2 GM/50 ML BAG IVPB (09:26)
--- NOTE | 2022-09-20 11:48 | W.PM.PROC2 ---
Procedure Note - Detailed Date of Procedure 09/20/22 Pre-op Diagnosis ventral hernia Post-op Diagnosis Same Procedure Performed Laparoscopic Ventral Hernia Repair with Mesh, da Marty assisted Surgeon Farhan Farrell DO Anesthesia General and Local (Exparel) Indications This is a 62-year-old man who presents with a bulge near his umbilicus that is been present for the past several years. It has gradually become larger and is causing some discomfort. He was found to have a 2-3 cm periumbilical hernia physical exam. Discussions were made with the patient about treatment options and decision was made to proceed with robotic assisted laparoscopic ventral hernia repair with mesh. Findings Laparoscopic ventral hernia repair was performed. Patient was found to have an umbilical and supraumbilical hernia. The umbilical hernia measured about 2 cm and then just superior to this there was a 1 cm ventral hernia. Both were containing omentum and preperitoneal fat. A robotic transabdominal preperitoneal approach was utilized for repair. A preperitoneal pocket was created and the hernia sac and herniated contents were reduced. The fascia was reapproximated using 0 Stratafix running absorbable suture. A 15 cm x [address] mesh was then placed into the preperitoneal pocket and secured to the abdominal wall using 3-0 Vicryl simple interrupted sutures. No specimens were obtained for pathology. Description of Procedure Procedure as well as risks, benefits, and alternatives were discussed with the patient. Written consent was obtained and placed in chart prior to procedure. Patient was brought back to surgical suite. He was placed supine on operating table. Time-out was done to confirm patient and procedure. He was then intubated by the anesthesia department. A bump was placed under his left hip, and the bed was flexed slightly to extend the space between his costal margin and iliac crest. His abdomen was prepped and draped in sterile fashion using chlorhexidine prep. A 5 millimeter incision was made in the left upper quadrant, and a 5 millimeter Optiview trocar was advanced through the abdominal layers under direct visualization. Once inside the abdominal cavity, carbon dioxide insufflation was used to create a pneumoperitoneum. His abdomen was inspected. An 8 millimeter incision was made in the left lower quadrant, and an 8 millimeter robotic trocar was placed under direct visualization. Another 8 millimeter incision was made in the left lateral abdomen, and an 8 millimeter robotic trocar was placed under direct visualization. Exparel was infiltrated along the lateral abdominal benito to perform a transversus abdominis plane block bilaterally. The 5 millimeter port was removed, the incision was extended to 12 millimeters, and a 12 millimeter air seal port was placed under direct visualization. A Gerardo-Reeves cone was also used to place an 0-Vicryl simple interrupted suture at this trocar site. The robotic arms were brought up to the patient's bedside and secured to the ports. The camera and instruments were inserted, and I then moved over to the robotic console and took control of the camera and instruments. After careful thorough inspection of the abdominal cavity, I began my dissection at the hernia. The omentum within the hernia was reduced. A preperitoneal pocket was then created starting along the left lateral abdominal wall using scissors with electrocautery. This was extended medially and then off to the right side of the abdomen until a wide enough pocket was created for mesh placement. The hernia sac was also reduced from within the hernia defect. I then measured the hernia size. The umbilical hernia measured 2 cm and supraumbilical ventral hernia measured 1 cm. The fascia was closed using an 0-Stratafix running suture in a vertical fashion. A Ventralight ST 15 cm x 10 cm mesh was then placed within the preperitoneal pocket. This was or
[2022-09-20] MEDS: oxyCODONE HCL (*CRX) 5 MG TAB IR PO (12:33)
== END 2022-09-20 13:45 | disposition home or self-care (01) ==
PROVIDERS: PCP Internal Medicine; Visit Provider Surgery
PROC: (CPT 49652; principal; 2022-09-20 10:00)
DX: K43.9 Ventral hernia without obstruction or gangrene (principal); K21.9 Gastro-esophageal reflux disease without esophagitis; G47.33 Obstructive sleep apnea (adult) (pediatric); E78.1 Pure hyperglyceridemia; Z79.82 Long term (current) use of aspirin; Z87.891 Personal history of nicotine dependence; E66.9 Obesity, unspecified; Z68.34 Body mass index [BMI] 34.0-34.9, adult
CPT/HCPCS: 49652; S2900; A9270; C1781; C9290; J0461; J0690; J1100; J1885; J2250; J2270; J2405; J2704; J2710; J7030; J7120

== ENCOUNTER 2023-08-29 07:01 | Outpatient (CLI) | payer BC, SELFPAY ==
[2023-08-29 07:49] LABS: Basophils Percent Auto 0.5 % (0.2-1.2); Eosinophils Absolute Auto 0.1 K/mm3 (0-0.3); Eosinophils Percent Auto 1.1 % (0-4.4); Hemoglobin 15.4 g/dL (14.0-18.0); Immature Granulocyte Absolute 0.03 K/mm3 (0.00-0.031); Immature Granulocyte Percent A 0.5 % (0-0.5); Lymphocytes Absolute Auto 2.36 K/mm3 (0.9-3.2); Lymphocytes Percent Auto 37.2 % (18.3-44.2); Mean Corpuscular HGB Conc 34.2 g/dl (32-36); Mean Corpuscular Hemoglobin 31.2 pg (26-34); Mean Corpuscular Volume 91.1 fl (80-100); Mean Platelet Volume 8.7 fl (7.4-10.4); Monocytes Absolute Auto 0.5 K/mm3 (0.1-0.6); Monocytes Percent Auto 7.7 % (2.6-8.5); Neutrophils Absolute Auto 3.4 K/mm3 (1.3-6.7); Platelet Count Result 209 k/mm3 (150-375); Red Blood Count 4.94 M/mm3 (4.6-6.20); Red Cell Distribution Width 12.8 % (11.5-14.5); White Blood Count 6.3 K/mm3 (4.5-10.0)
[2023-08-29 08:03] LABS: Alanine Aminotransferase 27 U/L (6-50); Albumin Level 4.5 g/dL (3.5-5.1); Alkaline Phosphatase 95 U/L (38-126); Anion Gap 10 mmol/L (8-16); Aspartate Amino Transferase 25 U/L (17-59); Bilirubin,Total 0.8 mg/dL (0.2-1.3); Blood Urea Nitrogen 13 mg/dL (9-20); Calcium 9.5 mg/dL (8.4-10.2); Carbon Dioxide 28 mmol/L (22-30); Chloride 102 mmol/L (98-107); Cholesterol 283 mg/dL (0-200); Estimated Glomerular Filt Rate > 60; Glucose 110 mg/dL (65-110); HDL Direct 43 mg/dL; Potassium 3.9 mmol/L (3.4-5.0); Sodium 140 mmol/L (137-145); Triglycerides 328 mg/dL (<150)
[2023-08-29 08:14] LABS: LDL Cholesterol Direct 145 mg/dL
[2023-08-29 08:31] LABS: Prostate Specific Antigen 0.9 ng/mL (< OR = 4.0)
== END 2023-08-29 07:02 | disposition home or self-care (01) ==
LOC: ANHLAB 07:02
PROVIDERS: PCP Internal Medicine; Visit Provider Nurse Practitioner
DX: E78.2 Mixed hyperlipidemia (principal); Z13.29 Encounter for screening for other suspected endocrine disorder; Z12.5 Encounter for screening for malignant neoplasm of prostate
CPT/HCPCS: 36415; 80053; 80061; 84153; 85025; G0103

== ENCOUNTER 2023-10-16 10:56 | Outpatient (CLI) | payer BC, SELFPAY ==
--- NOTE | ~2023-10-16 | XR_ITS ---
EXAMINATION: XR shoulder LT min 2V DATE: 10/16/2023 11:29 INDICATION: Nontraumatic left shoulder pain TECHNIQUE: AP internally and externally rotated, AP oblique externally rotated and transscapular Y vi ews of the left shoulder were obtained. COMPARISON: None FINDINGS: Normal alignment. No fracture. Glenohumeral joint is normal. Mild/moderate chronic clavicular osteoa rthritis. Bone island at the head. Visualized portions of the lungs are clear. Soft tissues are unrem arkable. IMPRESSION: Mild to moderate osteoarthritis. Reviewed, dictated and finalized at location A. ING LATHE OPERATOR
== END 2023-10-16 10:57 | disposition home or self-care (01) ==
PROVIDERS: PCP Internal Medicine; Visit Provider Nurse Practitioner
DX: M19.012 Primary osteoarthritis, left shoulder (principal)
CPT/HCPCS: 73030

== ENCOUNTER 2023-11-09 08:42 | Outpatient (CLI) | payer BC, SELFPAY ==
--- NOTE | ~2023-11-09 | MR_ITS ---
MRI of the left shoulder Technique: Axial proton-density fat-sat images, coronal proton density fat-sat and T2 fat-sat images, and sagittal T1-weighted and T2 fat-sat images were acquired. Clinical History: Pain Findings: There is moderate AC joint degenerative change, bony productive change at the distal clavic le, and small subacromial spur. Coracoclavicular, coracoacromial, and coracohumeral ligaments appear intact. There is low to moderate grade bursal surface partial thickness tearing of the central to posterior a spect of the supraspinatus tendon, involving up to approximately 50-60% of the total tendon thickness . Infraspinatus tendon is intact, without partial or full-thickness tear. Subscapularis tendon is int act with mild tendinosis. Tendon of long head of the biceps is intact. No labral tear evident. There is minimal inferomedial humeral head osteophyte with subchondral cystic change at the inferior glenoid. Inferior glenohumeral ligament is intact. There is fluid distention of the subacromial/subde ltoid bursa. No glenohumeral joint effusion. No muscle atrophy or edema. Impression: Low to moderate grade bursal surface partial thickness tearing of the supraspinatus tendon, as detail ed above. Subacromial/subdeltoid bursitis. Moderate AC joint degenerative change. Reviewed, dictated and finalized at [facility]. P FOLDING MACHINE OPERATOR Impression: Low to moderate grade bursal surface partial thickness tearing of the supraspin atus tendon, as detailed above. Subacromial/subdeltoid bursitis. Moderate AC joint degenerative change.
== END 2023-11-09 08:43 | disposition home or self-care (01) ==
LOC: ANHIMG 08:44
PROVIDERS: PCP Internal Medicine; Visit Provider Nurse Practitioner
DX: M19.012 Primary osteoarthritis, left shoulder (principal); M75.52 Bursitis of left shoulder
CPT/HCPCS: 73221

== ENCOUNTER 2024-03-04 13:07 | Outpatient (CLI) | payer BC, SELFPAY ==
--- NOTE | 2024-03-04 13:20 | ECG_ITS ---
Test Date: 2024-03-04 13:29:27 Measurements Intervals [place] Rate: 76 P: 11 NM: 172 QRS: -44 QRSD: 105 T: 30 QT: 385 QTc: 435 Interpretive Statements SINUS RHYTHM MARKED LEFT AXIS DEVIATION [QRS AXIS < -30] No previous ECG available for comparison Electronically Signed On 03-04-2024 16:04:48 CDT by Keeley Tate M.D.
== END 2024-03-04 13:08 | disposition home or self-care (01) ==
LOC: ANHSURGERY 13:10
PROVIDERS: PCP Nurse Practitioner; Visit Provider Orthopaedic Surgery
DX: E78.5 Hyperlipidemia, unspecified (principal)
CPT/HCPCS: 93005

== ENCOUNTER 2024-03-11 00:25 | Day surgery (SDC) | payer BC, SELFPAY ==
[2024-02-28 11:14] VITALS: BMI 35.1
--- NOTE | 2024-02-28 11:22 | PC.NURSE ---
Report to the Outpatient Waiting Room, entrance under the green pavilion located off [facility], at time ___7:30am____ on date ____1-31-2021___. Planned Procedure Time: 9:30am___. Time changes happen often and if your time is changed the preop area will call you the afternoon before. - You and your visitor will be asked to self-screen and do not enter if you have any COVID symptoms. - A mask is optional within the hospital at this time. Patients may have clear liquids (water, carbonated beverages, clear teas, apple juice) until 3 hours prior to surgery with a maximum of 20 ounces. (STOP AT 6:30AM) - No food from midnight until time of surgery Take the following medications with a SIP of water the morning of surgery: ___N/A DO NOT STOP ANY OF YOUR OTHER PRESCRIPTION MEDICATIONS PRIOR TO SURGERY ?EXCEPT THE FOLLOWING: Medications to discontinue per physician: ASPIRIN- TAKE YOUR LAST DOSE ON 03-03-2024 STOP YOUR CINNAMON, GLUCOSAMINE, MULTIVITAMIN AND OMEGA 3. YOUR LAST DOSE WILL BE ON 03-07-2024 FOR ALL OF THESE SUPPLEMENTS. YOU MAY TAKE YOUR NIGHT TIME MEDICATIONS THE EVENING BEFORE SURGERY. Please no make-up, nail yi, hairspray, perfume, deodorant, or body powder the day of surgery. No jewelry (including any body piercings) or valuables the day of surgery, leave them at home. Please take a shower or bath the night before, or the morning of, surgery with an antibacterial soap. Wear comfortable, loose fitting clothing. - Jewelry must be removed prior to entering the operating room. Rings and piercings that are not removed may be cut off. - The hospital will not accept responsibility for valuables. - Please leave all valuables, including medications, at home the day of surgery. If you are going home after surgery, a licensed cat driver must drive you home. - NO public transportation without another adult if you receive anesthesia. - We recommend that an adult stay with you for 24 hours following discharge. - We also recommend that you do not drive, make important decision, drink alcoholic beverages, or take any drugs that were not prescribed by your health care provider for at least 24 hours after your discharge time. Follow any additional instructions given to you from your surgeon. If you or anyone in your household have experienced Covid symptoms in the past week, please notify your surgeon or the nurse liaison at the phone number below for possible testing. Telephone instructions given to __JOSSIE (PATIENT)__and asked if any additional questions and then verbalized understanding. *Patient advised to call surgeon office or pre surgery nurse liaison [phone] if any additional questions.*
[2024-03-11] VITALS (9 sets, daily range): BP systolic 100–151; BP diastolic 54–85; PULSE 56–71; RESP 14–20; TEMP 36.5; O2SAT 94–99; BMI 34.3
[2024-03-11] MEDS: LACTATED RINGERS 1,000 ML 30 ML IV CONT ×2 (08:00→12:24)
[2024-03-11] MEDS: ACETAMINOPHEN 500 MG TABLET 1000 MG PO (08:15)
[2024-03-11] MEDS: KETOROLAC 15 MG/ML VIAL (*BKC) IV PUSH (08:15)
--- NOTE | 2024-03-11 09:38 | WPDANESEPPF ---
Anes - Initial Pre Proc Eval Procedure: Operation Date: 03/11/24 09:30 Proposed Procedures p Left Shoulder Arthroscopy, Rotator Cuff Repair with Subacromial Decompression - Farhan Chavira MD Date/Time: 03/11/24 09:38 Surgeon: Farhan Chavira MD Pre Op Diagnosis: left shoulder rotator cuff tear Patient Data Age: 63 Gender: M Height: 1.78 m Weight: 108.6 kg Last Vital Signs Temp 97.7 F 03/11/24 07:46 Pulse 56 L 03/11/24 07:46 BP 151/74 H 03/11/24 07:46 Pulse Ox 99 03/11/24 07:46 O2 Del Method Room Air 03/11/24 07:46 Allergies Allergy/AdvReac Type Severity Reaction Status Date / Time No Known Allergies Allergy Verified 02/28/24 11:15 Home Medications Medication Instructions Recorded Confirmed Type famotidine 20 mg tablet (Pepcid) 20 mg PO QPM 08/25/19 02/28/24 History glucosamine-chondroitin 750 mg-600 2 tablet PO DAILY 08/25/19 02/28/24 History mg tablet omega-3 fatty acids 1,000 mg 4,000 mg PO BID 09/01/21 02/28/24 History capsule (Fish Oil Concentrate) cinnamon bark 500 mg capsule 1,000 mg PO BID 01/11/22 02/28/24 History (Cinnamon) multivitamin 1 tablet PO DAILY 01/11/22 02/28/24 History atorvastatin 40 mg tablet 40 mg PO QHS #90 tabs 09/04/23 02/28/24 Rx aspirin 81 mg tablet,delayed 81 mg PO DAILY 02/28/24 02/28/24 History release Patient hx anesthesia problems: none Family hx anesthesia problems: none Results Review: All pre-operative results and documents have been reviewed as part of the pre-operative evaluation. [facility] Past Medical History Medical History Allergies Chicken pox GERD (gastroesophageal reflux disease) Heartburn History of measles, mumps, or rubella History of stress test (~2014) Hyperglycemia Hyperglycemia Hypertriglyceridemia Obesity BLU (obstructive sleep apnea) Osteoarthritis Surgical History Surgical History H/O knee surgery (~05/03/09) Right Knee Torn Meniscus History of hip replacement (~02/07/22) Hx of ventral hernia repair LAP ventral hernia repair w mesh, Da Marty assisted on 09/20/22 Family History Family History Father Patient's father is Other Arthritis Social History Social History Smoking packs per day: 1 Smoking cigarettes per day: 20.0 Years smoked: 28 Smoking pack-years: 28.00 Smoking status: Former smoker Tobacco type: cigarettes Second hand tobacco smoke exposure: Yes Smoking end date: 09/24/07 Additional smoking assessment comments: DENIES ANY FORM OF TOBACCO USE Alcohol intake: current Drinks per week: 1 Alcohol use details: twice a month on average Substance use: never Substance use type: does not use Last use: 07-25-2008 Do You Feel Safe in your Home?: Yes Lack of Transportation: No Lack of Food: Never True Current Housing: I Have Housing Concerned About Future Housing: No Difficulty Paying Gas/Electric Bills: No Difficulty Paying for Meds: No Currently Unemployed: No Education: Bachelor's Degree Difficulty w/ Childcare or Family Care: No Living arrangements: with family Gender identity (if verbalized by the patient): Male Sexual Orientation (if Verbalized by the Patient): Straight or Heterosexual Spiritual care concerns: No Anes - Eval Final PreProcedure Day of Procedure 03/11/24 09:38 Patient weight: obese Heart: regular rate and rhythm Lungs: clear to auscultation Airway: Mallampati scale class III Neurological: alert and oriented Last oral intake: >/= 8 hours ASA classification: III Emergent: no Anesthetic plan: proceed Anesthesia type and monitoring: general ETT and standard monitoring Results Review: All pre-operative results and documents have bee
--- NOTE | 2024-03-11 09:39 | WPDANESPNB ---
Anes - Peripheral Nerve Block Date/Time: 03/11/24 09:39 I have discussed with the patient/family/POA the placement of a peripheral nerve block for post-operative pain management, including associated risks, benefits, complications, and side effects. Alternative methods of post-operative analgesia were detailed. Questions were solicited and answers provided to the satisfaction of the patient/family/POA. Time-Out: A pre-procedural Time-Out was completed immediately before starting the procedure and confirmed: Patient Identification, Site, Procedure, Patient Position and the Availability of Requisite Equipment. Clinical Indications: Acute post-operative pain management requested by the operative surgeon. Nerve Block Insertion Note Anes-nerve block: interscalene left Patient position: supine Skin prep: chlorhexidine Needle: 22 gauge, stimulating, insulated echogenic needle. Needle length: 80 mm Technique: ultrasound Injectate: other (Bupiv 0.5%, 15 mls. ) Observations: tolerated well Complications: none Procedure start time:: 930 Procedure end time::
[2024-03-11] MEDS: ceFAZolin 2 GM/D5W 50 ML 2 GM/50 ML BAG IVPB (09:51)
[2024-03-11] MEDS: EPINEPHrine HCL INJ 1 MG/ML AMPUL 3 MG IRRIGATION (10:44)
--- NOTE | 2024-03-11 12:40 | W.PM.PROC2 ---
Procedure Note - Detailed Date of Procedure 03/11/24 Pre-op Diagnosis 1. Left shoulder high-grade partial-thickness rotator cuff tear 2. Subacromial impingement Post-op Diagnosis Same Procedure Performed Left shoulder 1. Arthroscopic rotator cuff repair 2. Arthroscopic subacromial decompression Surgeon Farhan Chavira MD Clinical Nurse Leader Mirna Silva PA-C Anesthesia General and Regional ( interscalene block) Findings High-grade bursal side tear in the medial aspect of the supraspinatus tendon. Findings were consistent with the MRI. Evidence for significant external impingement on the undersurface of the acromion which was type 3. Also large inferior spur at the distal clavicle. Decompression was performed with acromioplasty and co-planing of the distal clavicle. There was a very small low-grade partial-thickness articular tear at the supraspinatus. Otherwise the rotator cuff appeared normal on the articular surface. There was a mild synovitis but no contracture. The subscapularis and labrum and biceps were normal. Two [id number] sutures were used in the medial aspect of the bursal sided tear. The Regeneten large graft was placed over the remaining defect area. Excellent coverage. Fixation with 5 VALE soft tissue anchors and 2 peek bone anchors. Description of Procedure Preoperative antibiotics were given. An interscalene block was administered in the preoperative area. The patient was bought brought to the operating room. A general anesthetic was administered. The patient was carefully positioned in the beach chair position. The head and neck were carefully positioned. The non operative extremity was also carefully positioned. The shoulder was prepped and draped in the usual sterile fashion. Examination was performed. Standard posterior and anterior arthroscopic portals were established. Inflow achieved with the arthroscopic pump using saline and epinephrine. The glenohumeral joint was carefully inspected. The articular cuff had a very small partial frayed area. The rotator crescent and cable otherwise appeared normal. There was a mild synovitis without contracture. The labrum and biceps were normal. Attention was turned to the subacromial space. A complete bursectomy was performed. The rotator cuff and footprint were lightly debrided. An acromioplasty and the distal clavicle was co-planed. The tear configuration was carefully assessed. There was evidence of significant external impingement on the subacromial spur. The bursa was thickened. There was a large crater area of supraspinatus tendon on the bursal side that was 30-50% torn. More medially the tear was in a longitudinal split configuration. This was nicely reapproximated with anterior to posterior converging sutures x2. The large Regeneten graft was selected to cover the central lateral defect in the supraspinatus. Five VALE anchors were placed in the soft tissues medially. These just abutted the more medial sutures. Laterally 2 peek anchors were used. Complete defect was nicely covered with the implant. The arthroscopic instruments were removed. The wounds were closed with 3-0 Monocryl subcuticular suture and steri strips. There were no complications. A sling was applied and the patient brought to the recovery room. Physician library serials assistant, Mirna Silva PA-C, required for surgery; including patient positioning, draping, arthroscopic camera operation, maintaining instrument position, suture retrieval, wound closure, and dressing and sling placement. Implants Hutchinson and nephew Regeneten implant, large size. Five VALE soft tissue anchors. Two peek bone anchors. Estimated Blood Loss 10 Pathology None sent Complications No immediate complications Condition Stable Disposition PACU [facility] Billing Surgery - Charge Forward: Surgery Billing
[2024-03-11] MEDS: oxyCODONE HCL (*CRX) 5 MG TAB IR PO (13:37)
--- NOTE | 2024-03-12 13:38 | WPDHPUPDATE1 ---
History and Physical Update Update Date/Time: 03/11/24 History and Physical has been reviewed, including an updated exam of the patient. There are NO changes in the patient's condition. Risks, benefits, and alternatives have been discussed and questions answered. Patient agrees to proceed with procedure.
== END 2024-03-11 14:39 | disposition home or self-care (01) ==
PROVIDERS: PCP Nurse Practitioner; Visit Provider Orthopaedic Surgery
PROC: (CPT 29805; principal; 2024-03-11 09:30)
DX: M75.102 Unspecified rotator cuff tear or rupture of left shoulder, not specified as traumatic (principal); M75.42 Impingement syndrome of left shoulder; M65.812 Other synovitis and tenosynovitis, left shoulder; G89.18 Other acute postprocedural pain; E78.1 Pure hyperglyceridemia; G47.33 Obstructive sleep apnea (adult) (pediatric); K21.9 Gastro-esophageal reflux disease without esophagitis; Z79.82 Long term (current) use of aspirin; Z87.891 Personal history of nicotine dependence; E66.9 Obesity, unspecified; Z68.34 Body mass index [BMI] 34.0-34.9, adult
CPT/HCPCS: 29827; 29826; 64415; A4565; A9270; C1713; J0171; J0330; J0690; J1100; J1885; J2250; J2405; J2704; J3010; J7120

== ENCOUNTER 2024-09-03 08:25 | Outpatient (CLI) | payer MEDICARE, SELFPAY ==
[2024-09-03 08:51] LABS: Basophils Percent Auto 0.5 % (0.2-1.2); Eosinophils Absolute Auto 0.1 K/mm3 (0-0.3); Eosinophils Percent Auto 1.5 % (0-4.4); Hematocrit 45.5 % (42.0-52.0); Hemoglobin 15.7 g/dL (14.0-18.0); Immature Granulocyte Absolute 0.03 K/mm3 (0.00-0.031); Immature Granulocyte Percent A 0.5 % (0-0.5); Lymphocytes Absolute Auto 2.35 K/mm3 (0.9-3.2); Mean Corpuscular HGB Conc 34.5 g/dl (32-36); Mean Corpuscular Hemoglobin 30.8 pg (26-34); Mean Corpuscular Volume 89.4 fl (80-100); Mean Platelet Volume 8.6 fl (7.4-10.4); Monocytes Absolute Auto 0.5 K/mm3 (0.1-0.6); Monocytes Percent Auto 7.2 % (2.6-8.5); Neutrophils Absolute Auto 3.6 K/mm3 (1.3-6.7); Neutrophils Percent Auto 54.3 % (45.5-73.1); Platelet Count Result 206 k/mm3 (150-375); Red Blood Count 5.09 M/mm3 (4.6-6.20); Red Cell Distribution Width 12.9 % (11.5-14.5); White Blood Count 6.5 K/mm3 (4.5-10.0)
[2024-09-03 09:22] LABS: Alanine Aminotransferase 33 U/L (6-50); Albumin Level 4.4 g/dL (3.5-5.1); Alkaline Phosphatase 95 U/L (38-126); Anion Gap 4 mmol/L (4-12); Aspartate Amino Transferase 29 U/L (17-59); Bilirubin,Total 1.2 mg/dL (0.2-1.3); Blood Urea Nitrogen 17 mg/dL (9-20); Calcium 9.6 mg/dL (8.4-10.2); Carbon Dioxide 30 mmol/L (22-30); Chloride 106 mmol/L (98-107); Cholesterol 168 mg/dL (0-200); Estimated Glomerular Filt Rate > 60; Glucose 119 mg/dL (65-110); HDL Direct 41 mg/dL; Potassium 4.4 mmol/L (3.4-5.0); Sodium 140 mmol/L (137-145); Triglycerides 280 mg/dL (<150)
[2024-09-03 09:32] LABS: LDL Cholesterol Direct 80 mg/dL
[2024-09-03 09:54] LABS: Prostate Specific Antigen 1.1 ng/mL (< OR = 4.0)
== END 2024-09-03 08:26 | disposition home or self-care (01) ==
LOC: ANHLAB 08:27
PROVIDERS: PCP Nurse Practitioner; Visit Provider Nurse Practitioner
DX: E78.2 Mixed hyperlipidemia (principal); Z12.5 Encounter for screening for malignant neoplasm of prostate; Z13.29 Encounter for screening for other suspected endocrine disorder; R73.9 Hyperglycemia, unspecified
CPT/HCPCS: 36415; 80053; 80061; 83036; 84153; 85025; G0103

== ENCOUNTER 2024-10-23 09:03 | Outpatient (CLI) | payer MEDICARE, SELFPAY ==
--- OUTSIDE RECORDS SUMMARY | 2024-10-23 09:34 | XMS_ITS | Patient Health Summary ---
Author Organization [facility] Address [address] [place] [address] Care Team Providers Care Taxi Proprietor Name Role Phone Unavailable Primary Care Provider Unavailabl e Note from [facility],non-owned Affiliates and Associated Physician Practices is amultiple site organization consisting of ambulatory clinics and hospital sitesin [place], [place], [place]. This disclosure is being madepursuant to the Care Everywhere program and may not contain all information available regarding this patient. Last updated 18.[facility] Social History Tobacco Use Types Packs/Day Years Used Date Smoking Tobacco: Never Assessed Sex and Gender Information Value Date Recorded Sex Assigned at Not on file Gender Identity Not on file Sexual Orientation Not on file Procedures * DERMATOPATHOLOGY(Performed 06/18/2023) Results * DERMATOPATHOLOGY (06/18/2023 12:00 AM CDT) Case Report Dermatopathology Report ? Case: [id number] ? Authorizing Provider: ??Colt Zarate MD ?Collected: ? 06/18/2023 12:00 AM ? Ordering Location: ? [facility] DermPath Lab ? Received: ?06/18/2023 04:22 PM ? Pathologist: ? Lexi Blanco, ? MD ? Specimen: ?Skin, right upper forehead ? 3 1:46 PM CDT DERMATOPATHOLOGY LABORATORY Final Diagnosis Specimen A. SKIN, right upper forehead: BASAL CELL CARCINOMA, NODULAR TYPE (C44.319) 3 1:46 PM T DERMATOPATHOLOGY LABORATORY Clinical History BCCA vs. Other. Path3 [id number] 3 1:46 PM CDT DERMATOPATHOLOGY LABORATORY Gross Description Specimen A: Received is one formalin filled container labeled with the patient's name and designated right upper forehead. The specimen consists of a shave biopsy measuring 4x3x1 mm. Jar 0. 3 1:46 PM CDT DERMATOPATHOLOGY LABORATORY Microscopic Description Specimen A. SKIN, right upper forehead: Within the dermis there are aggregates of basaloid cells with a high nuclear to cytoplasmic ratio and peripheral palisading. 3 1:46 PM CDT DERMATOPATHOLOGY LABORATORY Disclaimer An external and internal positive and negative controls are appropriate for the histochemical, immunohistochemical and immunofluorescence stain(s) in this case (if any), except where stated explicitly. The performance characteristics of the stain(s) cited in this report were developed and its performance characteristic determined by the Dermatopathology Laboratory at [facility], directed by Dr. M. Mague Almaraz. These tests need not be, and therefore are not, approved by the [place] Food and Drug Administration. The tests are used for clinical purposes. Billing Codes Specimen Charges Stain Charges 86228 1 3 1:46 PM CDT DERMATOPATHOLOGY LABORATORY Embedded Images 3 1:46 PM CDT DERMATOPATHOLOGY LABORATORY Pathology/Cytolog y TISSUE SPECIMEN FROM SKIN / Unknown 06/18/2023 06/18/2023 4:22 PM CDT Colt Zarate MD LAB - PATHOLOGY/CYTO LOGY ORDERABLES DERMATOPATHOLOGY LABORATORY [facility] - Department of Dermatology [facility] [address] [place] [address], [address] [phone]
--- OUTSIDE RECORDS SUMMARY | 2024-10-23 09:34 | XMS_ITS | Encounter Summary ---
Author Organization [facility] Address [address] [place] [address] Care Team Providers Care Doctor Podiatric Medicine Name Role Phone Unavailable Primary Care Provider Unavailabl e Encounter Details Date Type Department Care Team (Late st Contact Info) Description 06/18/2023 Lab Requisition [facility] - DermPath Lab [address] [facility] [address] [place] [address] Colt Zarate MD [address] [place] [address] Social History Tobacco Use Types Packs/Day Years Used Date Smoking Tobacco: Never Assessed Sex and Gender Information Value Date Recorded Sex Assigned at Not on file Gender Identity Not on file Sexual Orientation Not on file documented as of this encounter Plan of Treatment Not on file documented as of this encounter Procedures Procedure Name Priority Date/Time Associated Diagnosis Comments DERMATOPATHOLOGY Routine 06/18/2023 12:0 0 AM CDT documented in this encounter Results * DERMATOPATHOLOGY (06/18/2023 12:00 AM CDT) Case Report Dermatopathology Report ? Case: [id number] ? Authorizing Provider: ??Colt Zarate MD ?Collected: ? 06/18/2023 12:00 AM ? Ordering Location: ? [facility] ? Received: ?06/18/2023 04:22 PM ? Pathologist: ? Lexi Blanco, ? MD ? Specimen: ?Skin, right upper forehead ? 3 1:46 PM CDT DERMATOPATHOLOGY LABORATORY Final Diagnosis Specimen A. SKIN, right upper forehead: BASAL CELL CARCINOMA, NODULAR TYPE (C44.319) 3 1:46 PM T DERMATOPATHOLOGY LABORATORY Clinical History BCCA vs. Other. Path3 [id number] 3 1:46 PM CDT DERMATOPATHOLOGY LABORATORY Gross [...] characteristic determined by the Dermatopathology Laboratory at [facility], directed by Dr. Indira Almaraz. These tests need not be, and therefore are not, approved by the [place] Food and Drug Administration. The tests are used for clinical purposes. Billing Codes Specimen Charges Stain Charges 88464 1 3 1:46 PM CDT DERMATOPATHOLOGY LABORATORY Embedded Images 3 1:46 PM CDT DERMATOPATHOLOGY LABORATORY Pathology/Cytolog y TISSUE SPECIMEN FROM SKIN / Unknown 06/18/2023 06/18/2023 4:22 PM CDT Colt Zarate MD LAB - PATHOLOGY/CYTO LOGY ORDERABLES DERMATOPATHOLOGY LABORATORY [facility] - Department of Dermatology [address], [address] [phone] documented in this encounter Visit Diagnoses Not on filedocumented in this encounter
--- OUTSIDE RECORDS SUMMARY | 2024-10-23 09:34 | XMS_ITS | Referral Summary ---
Author Organization [facility] Address [address] [place] [address] Care Team Providers Care Cable Spooler Name Role Phone Unavailable Primary Care Provider Unavailabl e Source Comments [facility],non-owned Affiliates and Associated Physician Practices is amultiple site organization consisting of ambulatory clinics and hospital sitesin [place], [place], [place] and [place]. This disclosure is being madepursuant to the Care Everywhere program and may not contain all information available regarding this patient. Last updated 18.[facility] Social History Tobacco Use Types Packs/Day Years Used Date Smoking Tobacco: Never Assessed Sex and Gender Information Value Date Recorded Sex Assigned at Not on file Gender Identity Not on file Sexual Orientation Not on file Plan of Treatment Not on file
--- OUTSIDE RECORDS SUMMARY | 2024-10-23 09:34 | XMS_ITS | Clinical Summary ---
Author Organization [facility] Address [address] [place] [address] Care Team Providers Care Project Builder Name Role Phone Unavailable Primary Care Provider Unavailabl e Source Comments [facility],non-owned Affiliates and Associated Physician Practices is amultiple site organization consisting of ambulatory clinics and hospital sitesin [place], [place], [place] and [place]. This disclosure is being madepursuant to the Care Everywhere program and may not contain all information available regarding this patient. Last updated 18.[facility] Social History Tobacco Use Types Packs/Day Years Used Date Smoking Tobacco: Never Assessed Sex and Gender Information Value Date Recorded Sex Assigned at Not on file Gender Identity Not on file Sexual Orientation Not on file Plan of Treatment Health Maintenance Due Date Last Done Comments COLOGUARD (AGES 45-75) - COL ON CA SCREENING 1959 COLON MONITORING 1959 COLONOSCOPY - COLON CA SCREENING 1959 CT COLONOGRAPHY - COLON CA SCREENING 1959 Colorectal Cancer Screening 1959 FIT - COLON CA SCREENING 1959 FLEX SIG - COLON CA SCREENING 1959 LIPID TESTING 1959 HIV SCREENING 1974 HEPATITIS C SCREENING 05/28/1977 DTAP/TDAP/TD VACCINES (1 - Tdap) 1978 PNEUMOCOCCAL VACCINE 50+ (1 of 1 - PCV) 2009 ZOSTER VACCINE (1 of 2) 2009 COVID-19 VACCINE ( - 2023-2 5 season) 2024 INFLUENZA VACCINE (#1) 2024 DEPRESSION SCREENING 09/24/2024 Respiratory Syncytial Virus (RSV) Vaccine Pt: or over 60 yrs (1 - 1-dose 75+ series) 2034 HEPATITIS B VACCINE Aged Out No longe r eligible based on patient's age to complete this topic HIB VACCINE Aged Out No longer eligi ble based on patient's age to complete this topic HPV VACCINE Aged Out No longer eligi ble based on patient's age to complete this topic MENINGOCOCCAL (Group B) VACCINE Aged Out No longer eligible based on patient's age to complete this topic MENINGOCOCCAL VACCINE Aged Out No josé dipika eligible based on patient's age to complete this topic
[2024-11-06 15:06] VITALS: BMI 34.4
--- NOTE | 2024-11-06 15:06 | P.SLEEP_ITS ---
Sleep Study - Home Unattended Date of Study: 10/23/24 Ordering Provider: Polina Beltran NP Interpreting Provider: Liat Dillard DO Home Sleep Study Type: Watch PAT Height: 1.78 m Weight: 108.862 kg Body Mass Index: 34.4 Neck Circumference (inches): 18.75 Leroy: 0 Reason for Sleep Study snoring Sleep History The patient is a 64 year male that had a sleep study ordered for evaluation of sleep apnea. The patient admits to snoring loudly, interruptions in breathing while asleep and trouble maintaining sleep. He does choke or gasp at night. He denies having trouble breathing on his back. He denies morning headaches. He denies having a dry or sore mouth / throat in the morning. He denies nocturnal heartburn. He denies nocturia. He denies having difficulty falling asleep. He denies having difficulty returning to sleep if he wakes up throughout the night. He denies hypnotic or sedative use. He denies feeling anxious about sleep. He denies feeling tired or sleepy during the day. He denies feeling tired in the morning. He denies having the urge to fall asleep during the day. He denies feeling drowsy while driving. He denies sleep paralysis, cataplexy and hypnagogic/ hypnopompic hallucinations. He denies clenching or grinding his teeth. He denies kicking or jerking his legs excessively. He denies having a restless feeling in his legs. He goes to bed at 10:40 p.m. every night. It takes him 15 minutes to fall asleep. He gets 6 hours 15 minutes of sleep per night. His sleep is a little more restorative on his days off. He denies taking any planned naps. He denies dream enactment behavior. He denies sleep walking. He consumes 3-4 caffeinated beverages per day. He consumes 1 alcoholic beverage 1-2 nights per week. He denies tobacco use. He exercises 5-7 nights per week. [facility] Past Medical History Medical History GERD (gastroesophageal reflux disease) BLU (obstructive sleep apnea) History of stress test (~2014) Obesity Hyperglycemia Hypertriglyceridemia Hyperglycemia Heartburn History of measles, mumps, or rubella Chicken pox Osteoarthritis Allergies Surgical History Surgical History Status post left rotator cuff repair (~03/11/24) w/Subacromial Decompression Hx of ventral hernia repair LAP ventral hernia repair w mesh, Da Marty assisted on 09/20/22 History of hip replacement (~02/07/22) H/O knee surgery (~05/03/09) Right Knee Torn Meniscus Family History Family History Father Patient's father is Other Arthritis Social History Social History Smoking packs per day: 1 Smoking cigarettes per day: 20.0 Years smoked: 28 Smoking pack-years: 28.00 Smoking status: Former smoker Tobacco type: cigarettes Second hand tobacco smoke exposure: Yes Smoking end date: 09/24/07 Additional smoking assessment comments: DENIES ANY FORM OF TOBACCO USE Alcohol intake: current Drinks per week: 1 Alcohol use details: twice a month on average Substance use: never Substance use type: does not use Last use: 07-25-2008 Do You Feel Safe in your Home?: Yes Lack of Transportation: No Lack of Food: Never True Current Housing: I Have Housing Concerned About Future Housing: No Difficulty Paying Gas/Electric Bills: No Difficulty Paying for Meds: No Currently Unemployed: No Education: Bachelor's Degree Difficulty w/ Childcare or Family Care: No Living arrangements: with family Gender identity (if verbalized by the patient): Male Sexual Orientation (if Verbalized by the Patient): Straight or Heterosexual Spiritual care concerns: No Medications Home Medications ?Medication ?Instructions ?Recorded ?Confirmed ?Type famotidine 20 mg tablet (Pepcid) 20 mg PO QPM 08/25/19 09/05/24 History glucosamine-chondroitin 750 mg-600 2 tablet PO DAILY 08/25/19 09/05/24 History mg tablet omega-3 fatty acids 1,000 mg 4,000 mg PO BID 09/01/21 09/05/24 History capsule (Fish Oil Concentrate) cinnamon bark 500 mg capsule 1,000 mg PO BID 01/11/22 09/05/24 History (Cinnamon) multivitamin 1 tablet PO DAILY 01/11/22 09/05/24 History aspirin 81 mg tablet,delayed 81 mg PO DAILY 02/28/24 09/05/24 History release atorvastatin 40 mg tablet 40 mg PO QHS #90 tabs 09/30/24 Rx Sleep Procedure The sleep study was completed using WatchPAT a technically adequate device with seven channels: peripheral arterial tone, actigraphy, body position, snore, respiratory movement, pulse oximetry, sleep staging, and heart rate. Prior to using the device, the patient received verbal and written instructions for its application and was provided with the help desk phone number for additional telephonic instruction with 24-hour availability of qualified personnel to answer questions. The study was scored using CMS guidelines. Sleep Architecture The total recording time is 6 hrs, 33 min. The total sleep time is 5 hrs, 1 min. Sleep latency is 17 minutes. REM latency is 326 minutes. The patient had 19 episodes of waking. Sleep architecture shows 5.0% deep sleep, 91.4% light sleep, and (as % Total Sleep Time) showed NREM (Light 91.4%; Deep 5.0%), and a 3.7% stage REM. The patient spent 29.7% of total sleep time in the supine position. Sleep efficiency was 76.59. Respiratory Analysis The overall AHI (pAHI 4%:) is 14.1. The central AHI is 0.2. The AHI was N/A in NREM and N/A in REM sleep. The AHI was 15.6 in Supine and 13.4 in Non-supine sleep. Percent of Wilbert Martinez respirations is 0.0. Oximetry Data The oxygen desaturation index (JAMES 4%:) is 13.9. The mean saturation is 94%, and the lowest saturation is 89%. Time spent with saturation < 88% is 0.0 minutes. Snoring Profile Snoring average intensity is 44 dB. The patient snored above 45 decibels for 103.0 minutes, 34.2% of sleep time. Cardiac Profile The average pulse rate is 48 beats per minutes. The lowest pulse rate is 36 bpm. The highest pulse rate reported is 80 bpm. Atrial fibrillation was not detected. Premature beats occur <0.1 per minute. Assessment and Plan Assessment and Plan (1) BLU (obstructive sleep apnea): Code(s): G47.33 - Obstructive sleep apnea (adult) (pediatric) Status: Acute Assessment and Plan: The patient had an overall AHI of 14.1 with desaturation down to 89%. This is consistent with mild sleep apnea. Due to the patient's sleep-maintenance insomnia, he qualifies for treatment. I recommend that the patient be prescribed AutoPAP 5-15 cm H2O, CPAP mask/filters/tubing and heated humidity. A mandibular advancement device is also an acceptable treatment option. This should be used with all episodes of sleep.? Compliance should be reviewed within 31-90 days of starting therapy for usage greater than 4 hours per night greater than 70% of the nights. The patient should be asked about symptoms such as?excessive daytime sleepiness, quality of sleep, decreased nocturia, increased?mental functioning such as memory, mood, and concentration. Data The data obtained during this sleep study is adequate for interpretation. Certification This sleep study has been reviewed by a board certified sleep medicine physician.
== END 2024-10-24 11:06 | disposition home or self-care (01) ==
LOC: ANHCSM 09:13
PROVIDERS: PCP Internal Medicine; Visit Provider Nurse Practitioner
DX: G47.33 Obstructive sleep apnea (adult) (pediatric) (principal)
CPT/HCPCS: 95800

== ENCOUNTER 2025-02-27 07:14 | Outpatient (CLI) | payer MEDICARE, SELFPAY ==
--- OUTSIDE RECORDS SUMMARY | 2025-02-27 07:17 | XMS_ITS | Encounter Summary ---
Author Organization [facility] Address [address] [place] [address] Care Team Providers Care Automotive Teacher Name Role Phone Unavailable Primary Care Provider Unavailabl e Encounter Details Date Type Department Care Team (Late st Contact Info) Description 06/18/2023 Lab Requisition [facility] - DermPath Lab [address] [place] [id number] Colt Zarate MD [address] [place] [address] Social History Tobacco Use Types Packs/Day Years Used Date Smoking Tobacco: Never Assessed Sex and Gender Information Value Date Recorded Sex Assigned at Not on file Legal Sex Male 3:28 PM CDT Gender Identity Not on file Sexual Orientation Not on file documented as of this encounter Plan of Treatment Not on file documented as of this encounter Procedures Procedure Name Priority Date/Time Associated Diagnosis Comments DERMATOPATHOLOGY Routine 06/18/2023 12:0 0 AM CDT documented in this encounter Results * DERMATOPATHOLOGY (06/18/2023 12:00 AM CDT) Case Report Dermatopathology Report Case: [id number] Authorizing Provider: Colt Zarate MD Collected: 06/18/2023 12:00 AM Ordering Location: [facility] Derm[facility] Lab Received: 06/18/2023 04:22 PM Pathologist: Lexi Blanco MD Specimen: Skin, right upper forehead 3 1:46 PM CDT DERMATOPATHOLOGY LABORATORY Final Diagnosis Specimen A. SKIN, right upper forehead: BASAL CELL CARCINOMA, NODULAR TYPE (C44.319) 3 1:46 PM CDT DERMATOPATHOLOGY LABORATORY at 1346 CDT Clinical History [facility] vs. Other. Path3 [id number] 3 1:46 PM CDT DERMATOPATHOLOGY LABORATORY Gross [...] characteristic determined by the Dermatopathology Laboratory at [facility], directed by Dr. Indira Almaraz. These tests need not be, and therefore are not, approved by the [place] Food and Drug Administration. The tests are used for clinical purposes. Billing Codes Specimen Charges Stain Charges 52404 1 3 1:46 PM CDT DERMATOPATHOLOGY LABORATORY Embedded Images 3 1:46 PM CDT DERMATOPATHOLOGY LABORATORY Pathology/Cytolog y TISSUE SPECIMEN FROM SKIN / Unknown 06/18/2023 06/18/2023 4:22 PM CDT us Colt Zarate MD LAB - PATHOLOGY/CYTOLOGY ORDER NENO Final Result DERMATOPATHOLOGY LABORATORY [facility] - Department of Dermatology [address] [place] [address], [facility] [phone] documented in this encounter Visit Diagnoses Not on filedocumented in this encounter
--- OUTSIDE RECORDS SUMMARY | 2025-02-27 07:17 | XMS_ITS | Clinical Summary ---
Author Organization [facility] Address [address] [place] [address] Care Team Providers Care Spool Cleaner Hand Name Role Phone Unavailable Primary Care Provider Unavailabl e Source Comments [facility],non-owned Affiliates and Associated Physician Practices is amultiple site organization consisting of ambulatory clinics and hospital sitesin [place], [place] and [place]. This disclosure is being madepursuant to the Care Everywhere program and may not contain all information available regarding this patient. Last updated 18.[facility] Social History Tobacco Use Types Packs/Day Years [...] VACCINE ( - 2023-2 5 season) 2024 DEPRESSION SCREENING 09/24/2024 INFLUENZA VACCINE (Season Ended) 2025 Respiratory Syncytial Virus (RSV) Vaccine Pt: or [...] to complete this topic MENINGOCOCCAL (Group B) VACC INE SHARED DECISION-MAKING Aged Out No longer eligibl e based on patient's age to complete this topic MENINGOCOCCAL GROUPS A/C/Y/W VACCINE Aged Out No longer eligible b ased on patient's age to complete this topic Insurance MICKEY
[2025-02-27 09:06] LABS: Hemoglobin A1C 5.6 % (<5.7)
== END 2025-02-27 07:15 | disposition home or self-care (01) ==
LOC: ANHLAB 07:15
PROVIDERS: PCP Internal Medicine; Visit Provider Nurse Practitioner
DX: R73.03 Prediabetes (principal)
CPT/HCPCS: 36415; 83036

== ENCOUNTER 2025-09-03 07:45 | Outpatient (CLI) | payer MEDICARE, SELFPAY ==
[2025-09-03 09:12] LABS: Hematocrit 43.6 % (42.0-52.0); Hemoglobin 14.9 g/dL (14.0-18.0); Immature Granulocyte Percent A 0.3 % (0-0.5); Lymphocytes Absolute Auto 2.20 K/mm3 (0.9-3.2); Mean Corpuscular HGB Conc 34.2 g/dl (32-36); Mean Corpuscular Hemoglobin 30.5 pg (26-34); Mean Corpuscular Volume 89.2 fl (80-100); Nucleated Red Blood Cells Absolute Auto 0.000 K/mm3 (0.0-0.012); Nucleated Red Blood Cells Perc 0.0 % (0.0-0.2); Platelet Count Result 206 k/mm3 (150-375); Red Blood Count 4.89 M/mm3 (4.6-6.20); White Blood Count 6.1 K/mm3 (4.5-10.0)
[2025-09-03 09:40] LABS: Alanine Aminotransferase 34 U/L (6-50); Albumin Level 4.4 g/dL (3.5-5.1); Alkaline Phosphatase 87 U/L (38-126); Anion Gap 7 mmol/L (4-12); Aspartate Amino Transferase 29 U/L (17-59); Bilirubin,Total 1.0 mg/dL (0.2-1.3); Blood Urea Nitrogen 15 mg/dL (9-20); Calcium 9.4 mg/dL (8.4-10.2); Carbon Dioxide 25 mmol/L (22-30); Chloride 106 mmol/L (98-107); Cholesterol 169 mg/dL (0-200); Estimated Glomerular Filt Rate > 60; Glucose 112 mg/dL (65-110); HDL Direct 44 mg/dL; Potassium 4.0 mmol/L (3.4-5.0); Sodium 138 mmol/L (137-145); Total Protein 7.0 g/dL (6.3-8.2); Triglycerides 203 mg/dL (<150)
[2025-09-03 09:43] LABS: Hemoglobin A1C 5.7 % (<5.7)
[2025-09-03 10:15] LABS: Prostate Specific Antigen 0.9 ng/mL (< OR = 4.0)
== END 2025-09-03 07:46 | disposition home or self-care (01) ==
PROVIDERS: PCP Internal Medicine; Visit Provider Nurse Practitioner
DX: E78.2 Mixed hyperlipidemia (principal); R73.03 Prediabetes; Z12.5 Encounter for screening for malignant neoplasm of prostate
CPT/HCPCS: 36415; 80053; 80061; 83036; 84153; 85025; G0103